=== PATIENT | male | born 1930 ===

== ENCOUNTER 2018-05-26 20:23 | Observation (INO) | payer MEDICARE, MEDICAID ==
--- NOTE | 2018-05-26 22:19 | ED PDOC ---
Lower Extremity Pain/Injury Time Seen by Provider: 05/26/18 21:17 Chief Complaint (Nursing): Male Genitourinary Chief Complaint (Provider): LLE Swelling History Per: Patient History/Exam Limitations: no limitations Onset/Duration Of Symptoms: Days (x3) Current Symptoms Are (Timing): Still Present Additional Complaint(s): 88 year old male, with a past medical hx of CHF, pacemaker, HTN, diabetes, and dyslipidemia, presents to the ED complaining of bilateral lower extremity swelling and SOB for 3 days. Patient is also complaining of intermittent chest pain, right flank pain, shortness of breath, trouble urinating last night, and dyspnea on exertion. PMD: Mau Peraza Past Medical History Reviewed: Historical Data, Nursing Documentation, Vital Signs Vital Signs: Last Vital Signs Temp 98.2 F 05/26/18 21:09 Pulse 84 05/26/18 21:09 Resp 18 05/26/18 21:09 BP 143/89 05/26/18 21:09 Pulse Ox 100 05/26/18 21:09 - Medical History PMH: CHF, Diabetes, HTN, Hypercholesterolemia, Seizures Denies: Chronic Kidney Disease Other PMH: Dyslipidemia - Surgical History Surgical History: Pacemaker Other surgeries: Brain surgery for traumatic blood clot - Family History Family History: States: Unknown Family Hx - Social History Current smoker - smoking cessation education provided: No Alcohol: None Drugs: Denies - Immunization History Hx Tetanus Toxoid Vaccination: No Hx Influenza Vaccination: No Hx Pneumococcal Vaccination: No - Home Medications Home Medications: Ambulatory Orders Medication Instructions Recorded RX: Carvedilol [Coreg] 25 mg PO BID 30 Days tab 05/15/17 RX: Dutasteride [Avodart] 0.5 mg PO DAILY #30 capsule 05/15/17 RX: Famotidine [Pepcid] 40 mg PO DAILY 30 Days tab 05/15/17 RX: Fenofibrate [Tricor] 1 tab PO DAILY 30 Days tab 05/15/17 RX: Furosemide [Lasix] 20 mg PO DAILY 30 Days tab 05/15/17 RX: Losartan [Cozaar] 50 mg PO DAILY 30 Days tab 05/15/17 RX: MetFORMIN [glucoPHAGE] 1,000 mg PO BID 30 Days tab 05/15/17 RX: Phenytoin Sodium Extended 100 mg PO TID #90 capsule 05/15/17 RX: Phenytoin, Extended [Dilantin] 100 mg PO TID 30 Days #0 cer 05/15/17 RX: Rosuvastatin Calcium [Crestor] 5 mg PO HS 30 Days tab 05/15/17 RX: Simvastatin 20 mg PO HS 30 Days tablet 05/15/17 RX: Acetaminophen [Tylenol 325mg 650 mg PO Q6 PRN tab 05/21/17 tab] RX: Amoxicillin [Amoxil 500 mg Cap] 500 mg PO Q8H cap 05/21/17 RX: Apixaban [Eliquis] 5 mg PO BID tab 05/21/17 RX: Aspirin [Aspirin Chewable] 81 mg PO DAILY chew 05/21/17 RX: Benzocaine/Menthol [Cepacol 1 dinorah MT DAILY PRN dinorah 05/21/17 Sore Throat] RX: Digoxin 0.125 mg PO DAILY@1800 tab 05/21/17 RX: Insulin Human Regular [Novolin 0 unit SC ACHS unit 05/21/17 R] RX: Meclizine [Meclizine*] 25 mg PO TID tab 05/21/17 RX: Metoprolol [Lopressor] 5 mg IVP Q1H PRN amp 05/21/17 RX: cefTRIAXone [Rocephin] 500 mg IVPB Q24H vial 05/21/17 RX: diltiaZEM CD [Cardizem CD] 120 mg PO DAILY cap 05/21/17 - Allergies Allergies/Adverse Reactions: Allergies Allergy/AdvReac Type Severity Reaction Status Date / Time No Known Allergies Allergy Verified 05/26/18 21:09 Review of Systems ROS Statement: Except As Marked, All Systems Reviewed And Found Negative Cardiovascular: Positive for: Chest Pain Respiratory: Positive for: Shortness of Breath, SOB with Exertion Gastrointestinal: Positive for: Abdominal Pain (right flank pain) Genitourinary Male: Positive for: Dysuria Musculoskeletal: Positive for: Other (Lower extremity swelling ) Physical Exam - Reviewed Nursing Documentation Reviewed: Yes Vital Signs Reviewed: Yes - Physical Exam Appears: Positive for: Non-toxic, No Acute Distress Head Exam: Positive for: ATRAUMATIC, NORMOCEPHALIC Skin: Positive for: Normal Color, Warm, Dry Eye Exam: Positive for: Normal appearance Neck: Positive for: Normal, Painless ROM Cardiovascular/Chest: Positive for: Regular Rate, Rhythm. Negative for: Murmur Respiratory: Positive for: Other (Decreased air entry to lung bases bilaterally). Negative for: Wheezing Extremity: Positive for: Other (2+ edema in lower extremities bilaterally) Neurologic/Psych: Positive for: Alert, Oriented. Negative for: Motor/Sensory Deficits - Laboratory Results Result Diagrams: 05/26/18 21:35 05/26/18 21:35 - ECG O2 Sat by Pulse Oximetry: 100 (RA) Pulse Ox Interpretation: Normal - Radiology X-Ray: Interpreted by Me, Viewed By Me X-Ray Interpretation: Cardiomegaly, Other (pacemaker) Medical Decision Making Medical Decision Making: Initial Impression: 88 y/o male with SOB, CP, and lower extremity edema insetting of known CHF Initial Plan: --CT abd/pelvis --ECG --B-type natriuretic stat --CMP --Troponin --ED urine dipstick --PTT --CBC --Prothrombin --Chest X-ray 00:15 Labs reviewed, significant for elevated proBNP. CT abd/pelvis showed no acute findings. XRay chest showed cardiomegaly. Patient has a pacemaker. Patient will be placed under observation for CHF chest pain under Dr. Dave (hospitalist). Scribe Attestation: Documented by Flaco Issa acting as a scribe for Damion Hernandez MD. Documented by Maricruz Gayle acting as a scribe for Damion Hernandez MD. Provider Scribe Attestation: All medical record entries made by the Scribe were at my direction and personally dictated by me. I have reviewed the chart and agree that the record accurately reflects my personal performance of the history, physical exam, medical decision making, and the department course for this patient. I have also personally directed, reviewed, and agree with the discharge instructions and disposition. Disposition - Clinical Impression Clinical Impression: CHF (congestive heart failure), Chest pain Discussed With DrSteffen: Prudencio Dave - Disposition Disposition Time: 00:15 Condition: FAIR Forms: [facility] ([place]) - Pt Status Changed To: Hospital Disposition Of: Observation
[2018-05-26 22:38] LABS: BASO # 0.1 K/uL (0.0-0.2); BASO % 1.1 % (0.0-2.0); EOS # 0.3 K/uL (0.0-0.7); EOS % 5.3 % (0.0-4.0); HEMOGLOBIN 10.2 g/dL (12.0-18.0); LYMPH # 1.2 K/uL (1.0-4.3); LYMPH % 21.4 % (20.0-40.0); MEAN CORPUSCULAR HEMOGLOBIN 27.1 pg (27.0-31.0); MEAN CORPUSCULAR HGB CONC 33.1 g/dL (33.0-37.0); MEAN PLATELET VOLUME 11.2 fl (7.2-11.7); MONO # 0.7 K/uL (0.0-0.8); MONO % 12.9 % (0.0-10.0); NEUT # 3.4 K/uL (1.8-7.0); NEUT % 59.3 % (50.0-75.0); NRBC % 0.1 % (0.0-0.0); RBC 3.77 Mil/uL (4.40-5.90); RED CELL DISTRIBUTION WIDTH 15.8 % (11.5-14.5); WHITE BLOOD COUNT 5.8 K/uL (4.8-10.8)
[2018-05-26 22:45] LABS: INR 1.5; PROTHROMBIN TIME 17.3 Seconds (9.8-13.1)
[2018-05-26 22:48] LABS: PARTIAL THROMBOPLASTIN TIME 42.8 Seconds (25.6-37.1)
[2018-05-26 22:53] LABS: ALB/GLOB RATIO 1.2 (1.0-2.1); ALBUMIN 4.3 g/dL (3.5-5.0); CALCIUM 9.6 mg/dL (8.4-10.2)
[2018-05-26 22:57] LABS: TROPONIN I 0.026 ng/mL (0.00-0.120)
[2018-05-26 23:43] LABS: SQUAMOUS EPITHIAL < 1 /hpf (0-5); URINE BILIRUBIN NEGATIVE (NEGATIVE); URINE BLOOD NEGATIVE (NEGATIVE); URINE CLARITY CLEAR (Clear); URINE COLOR YELLOW (YELLOW); URINE GLUCOSE (UA) NEG (Normal); URINE LEUKOCYTE ESTERASE TRACE Leu/uL (Negative); URINE PROTEIN NEGATIVE (NEGATIVE); URINE UROBILINOGEN 0.2-1.0 mg/dL (0.2-1.0)
--- NOTE | 2018-05-27 03:21 | CP.PCM.HP ---
Addendum entered and electronically signed by Darío Houston MD 05/27/18 17:23: And Losartan 50 mg po QD Addendum entered and electronically signed by Darío Houston MD 05/27/18 17:18: Called patient's pharmacy and verified list of medication : He has not been on cardizem or digoxin as per pharmacy he is on Coreg 25 mg po BId, eliquist 5 mg po BID fenofibrate 145 mg po qd lasix 20 mg po QWD Avodart 0.5 mg po QD Flomax 0.4 mg po qd Dilantin 100 mg po tid metformin 1000 mg po BID Simvastatin 20 mg PO Qd Omeprazole 40 mg Po QD Meclizine 25 mg po TID PRN Addendum entered and electronically signed by Darío Houston MD 05/27/18 16:53: Patient seen and examined . All chart and clinical data reviewed. Care resumed . case discussed with resident . Agree with assessment and plna Continue current management Acute CHF exacerbation diastolic dysfuntion __ Echo showed EF 60-65 % Continue Lasix 40 mg IV , Cozaar,Digoxin, Coreg cardio eval with Dr. Nuno Trop x2 negative CXR and CT abdomen ands pelvis showed no acute pathology Start Lidoderm patch to right hemithorax , laterally PT eval Addendum entered and electronically signed by Mechelle Meadows MD 05/27/18 14:07: S: Patient was seen and examined this morning, NAD, reports no significant SOB or chest pain. States increased urinary frq, and right flank pain. O: VS reviewed PE: AAOx3, CTBL, pedal edema A/P: 88 y/o male with PMH of NIDDM2, Pacemaker, HTN, Afib admitted for evaluation and treatment of possible CHF - Troponin x2 negative - EKG: A.fib, Consider lateral ischemia - CXR negative for any acute findings - Abdo/Pelvis CT: negative (F/u official read) - Echo: EF 60-65% (Elevated Pro-BNP) - C/w Lasix 40mg IV daily - HTN/A.fib: C/w Eliquis, Coreg, Digoxin, Cardizem, Cozzar - Back/Flank pain: Pleuritis vs Musculoskeletal, C/w Lidoderm patch - BPH: C/w dutasteride Case discussed with Dr. Houston Original Note: <Ha Luna - Last Filed: 05/27/18 03:50> History of Present Illness - History of Present Illness History of Present Illness: 88 y/o male with extensive cardiac history, hard of hearing, presented to ER for evaluation of elevated BP, chest pain, and worsening pedal edema. Reports symptoms have been ongoing for the last three days, with symptoms being the worst today. Pt does not remember his home BP reading. His chest pain is located substernally without any radiation and has since resolved since being seen in ED. He denies any orthopnea or changes in exercise tolerance. He denies any left arm pain/jaw pain, N/V/diaphoresis. No other complaints. Reports being adherent with home meds but does not have which ones he was taking today. PMD: Dr Mau Elise. cardio: Zeinab Nuno PMHx: NIDDM2, Pacemaker, HTN, Afib Home Medications: as per med rec, several meds need to be confirmed from pharmacy Allergies: NKDA SocialHx: denies ETOH/tobacco/drug abuse FamHx: denies Present on Admission - Present on Admission Any Indicators Present on Admission: No History of DVT/PE: No History of Uncontrolled Diabetes: No Urinary Catheter: No Decubitus Ulcer Present: No Review of Systems - Review of Systems Review of Systems: 12 systems reviewed, found to be negative unless otherwise mentioned in HPI Past Patient History - Past Medical History & Family History Past Medical History?: Yes - Past Social History Alcohol: None Drugs: Denies - CARDIAC Hx Congestive Heart Failure: Yes Hx Hypercholesterolemia: Yes Hx Hypertension: Yes Hx Pacemaker: Yes - PULMONARY Hx Respiratory Disorders: No - NEUROLOGICAL Hx Seizures: Yes - RENAL Hx Chronic Kidney Disease: No - ENDOCRINE/METABOLIC Hx Diabetes Mellitus Type 1: Yes - MUSCULOSKELETAL/RHEUMATOLOGICAL Hx Falls: Yes - PSYCHIATRIC Hx Substance Use: No - SURGICAL HISTORY Hx Eye Surgery: Yes (Both) - ANESTHESIA Hx Anesthesia: Yes Hx Anesthesia Reactions: No Meds Allergies/Adverse Reactions: Allergies Allergy/AdvReac Type Severity Reaction Status Date / Time No Known Allergies Allergy Verified 05/26/18 21:09 Physical Exam - Constitutional Appears: Non-toxic, No Acute Distress - Head Exam Head Exam: ATRAUMATIC, NORMOCEPHALIC - Eye Exam Eye Exam: EOMI. absent: Scleral icterus Pupil Exam: PERRL - ENT Exam ENT Exam: Mucous Membranes Moist - Neck Exam Neck exam: Negative for: Lymphadenopathy - Respiratory Exam Respiratory Exam: Clear to Auscultation Bilateral, NORMAL BREATHING PATTERN. absent: Accessory Muscle Use, Rales, Rhonchi, Wheezes, Respiratory Distress - Cardiovascular Exam Cardiovascular Exam: REGULAR RHYTHM, RRR, +S1, +S2, Systolic Murmur (lusb). absent: JVD, Rubs - GI/Abdominal Exam GI & Abdominal Exam: Normal Bowel Sounds, Soft, Tenderness (RUQ tenderness ) - Extremities Exam Extremities exam: Positive for: normal capillary refill, pedal edema (2+ b/l pitting edema up to the knees ), pedal pulses present - Neurological Exam Neurological exam: Alert, Oriented x3 - Skin Skin Exam: Dry, Intact, Normal Color, Warm Results - Vital Signs Recent Vital Signs: Last Vital Signs Temp 98.3 F 05/27/18 01:10 Pulse 84 05/27/18 01:10 Resp 17 05/27/18 01:10 BP 148/101 H 05/27/18 01:10 Pulse Ox 100 05/27/18 01:17 - Labs Result Diagrams: 05/26/18 21:35 05/26/18 21:35 Labs: Laboratory Results - last 24 hr 05/26/18 05/26/18 05/26/18 21:35 21:35 22:25 WBC 5.8 RBC 3.77 L Hgb 10.2 L Hct 31.0 L MCV 82.0 MCH 27.1 MCHC 33.1 RDW 15.8 H Plt Count 150 MPV 11.2 Neut % (Auto) 59.3 Lymph % (Auto) 21.4 [place] % (Auto) 12.9 H Eos % (Auto) 5.3 H Baso % (Auto) 1.1 Neut # (Auto) 3.4 Lymph # (Auto) 1.2 [place] # (Auto) 0.7 Eos # (Auto) 0.3 Baso # (Auto) 0.1 PT 17.3 H INR 1.5 APTT 42.8 H Sodium 143 Potassium 4.4 Chloride 103 Carbon Dioxide 28 Anion Gap 16 BUN 20 Creatinine 1.4 Est GFR ( Amer) 58 Est GFR (Non-Af Amer) 48 Random Glucose 126 H Calcium 9.6 Total Bilirubin 0.6 AST 30 ALT 16 L Alkaline Phosphatase 33 L Troponin I 0.0260 NT-Pro-B Natriuret Pep 1780 H Total Protein 8.0 Albumin 4.3 Globulin 3.7 Albumin/Globulin Ratio 1.2 Urine Color Urine Clarity Urine pH Ur Specific [place] Urine Protein Urine Glucose (UA) Urine Ketones Urine Blood Urine Nitrate Urine Bilirubin Urine Urobilinogen Ur Leukocyte Esterase Urine RBC (Auto) Urine Microscopic WBC Ur Squamous Epith Cells 05/26/18 23:20 WBC RBC Hgb Hct MCV MCH MCHC RDW Plt Count MPV Neut % (Auto) Lymph % (Auto) [place] % (Auto) Eos % (Auto) Baso % (Auto) Neut # (Auto) Lymph # (Auto) [place] # (Auto) Eos # (Auto) Baso # (Auto) PT INR APTT Sodium Potassium Chloride Carbon Dioxide Anion Gap BUN Creatinine Est GFR ( Amer) Est GFR (Non-Af Amer) Random Glucose Calcium Total Bilirubin AST ALT Alkaline Phosphatase Troponin I NT-Pro-B Natriuret Pep Total Protein Albumin Globulin Albumin/Globulin Ratio Urine Color Yellow Urine Clarity Clear Urine pH 7.0 Ur Specific [place] 1.005 Urine Protein Negative Urine Glucose (UA) Neg Urine Ketones Negative Urine Blood Negative Urine Nitrate Negative Urine Bilirubin Negative Urine Urobilinogen 0.2-1.0 Ur Leukocyte Esterase Trace Urine RBC (Auto) 3 Urine Microscopic WBC 9 H Ur Squamous Epith Cells < 1 Assessment & Plan - Assessment and Plan (Free Text) Assessment: 88 y/o male with extensive cardiac history admitted for acute CHF. Plan: 1) Acute CHF ProBNP 1750 daily weights strict I/Os AM ECHO head of bed at 30 deg lasix 40 ivp daily con't all home medications, hold PO lasix trend Troponin repeat EKG in AM 2) Atrial fibrillation c/w home meds 3) NIDDM2 -resume PO metformin -insulin lispro coverage scale 4) Prophylaxis -Elqiuis 5mg QD 5) Diet -heart healthy 6) Code status -full code <Prudencio Dave P - Last Filed: 05/27/18 06:45> Results - Vital Signs Recent Vital Signs: Last Vital Signs Temp 98.7 F 05/27/18 05:00 Pulse 77 05/27/18 05:00 Resp 16 05/27/18 05:00 BP 127/88 05/27/18 05:00 Pulse Ox 100 10/10/18 05:00 - Labs Result Diagrams: 05/26/18 21:35 05/26/18 21:35 Labs: Laboratory Results - last 24 hr 05/26/18 05/26/18 05/26/18 21:35 21:35 22:25 WBC 5.8 RBC 3.77 L Hgb 10.2 L Hct 31.0 L MCV 82.0 MCH 27.1 MCHC 33.1 RDW 15.8 H Plt Count 150 MPV 11.2 Neut % (Auto) 59.3 Lymph % (Auto) 21.4 [place] % (Auto) 12.9 H Eos % (Auto) 5.3 H Baso % (Auto) 1.1 Neut # (Auto) 3.4 Lymph # (Auto) 1.2 [place] # (Auto) 0.7 Eos # (Auto) 0.3 Baso # (Auto) 0.1 PT 17.3 H INR 1.5 APTT 42.8 H Sodium 143 Potassium 4.4 Chloride 103 Carbon Dioxide 28 Anion Gap 16 BUN 20 Creatinine 1.4 Est GFR ( Amer) 58 Est GFR (Non-Af Amer) 48 POC Glucose (mg/dL) Random Glucose 126 H Calcium 9.6 Total Bilirubin 0.6 AST 30 ALT 16 L Alkaline Phosphatase 33 L Troponin I 0.0260 NT-Pro-B Natriuret Pep 1780 H Total Protein 8.0 Albumin 4.3 Globulin 3.7 Albumin/Globulin Ratio 1.2 Urine Color Urine Clarity Urine pH Ur Specific [place] Urine Protein Urine Glucose (UA) Urine Ketones Urine Blood Urine Nitrate Urine Bilirubin Urine Urobilinogen Ur Leukocyte Esterase Urine RBC (Auto) Urine Microscopic WBC Ur Squamous Epith Cells 05/26/18 05/27/18 05/27/18 23:20 04:11 04:20 WBC RBC Hgb Hct MCV MCH MCHC RDW Plt Count MPV Neut % (Auto) Lymph % (Auto) [place] % (Auto) Eos % (Auto) Baso % (Auto) Neut # (Auto) Lymph # (Auto) [place] # (Auto) Eos # (Auto) Baso # (Auto) PT INR APTT Sodium Potassium Chloride Carbon Dioxide Anion Gap BUN Creatinine Est GFR ( Amer) Est GFR (Non-Af Amer) POC Glucose (mg/dL) 87 Random Glucose Calcium Total Bilirubin AST ALT Alkaline Phosphatase Troponin I 0.0280 NT-Pro-B Natriuret Pep Total Protein Albumin Globulin Albumin/Globulin Ratio Urine Color Yellow Urine Clarity Clear Urine pH 7.0 Ur Specific [place] 1.005 Urine Protein Negative Urine Glucose (UA) Neg Urine Ketones Negative Urine Blood Negative Urine Nitrate Negative Urine Bilirubin Negative Urine Urobilinogen 0.2-1.0 Ur Leukocyte Esterase Trace Urine RBC (Auto) 3 Urine Microscopic WBC 9 H Ur Squamous Epith Cells < 1 Attending/Attestation - Attestation I have personally seen and examined this patient.: Yes I have fully participated in the care of the patient.: Yes I have reviewed all pertinent clinical information: Yes Notes (Text): 05/27/18 06:42 Assessment CHF exacerbation with leg edema suspected hepatic congestion HTN h/o afib on eliquis, rate control s/p pacemaker DM on metformin Plan IV diuresis Home meds hold on metformin, due to CHF, sliding scale coverage Echo if not recently done See orders for detail.
[2018-05-27] MEDS ORDERED: Glucagon Recombinant 1 mg Inj IM PRN (03:56)
[2018-05-27] MEDS ORDERED: Dextrose 50% SYRINGE Inj (50 ml) IV PRN (03:56)
[2018-05-27] MEDS ORDERED: Pneumococcal 23-Valent Vaccine IM ONE (06:00)
--- NOTE | 2018-05-27 06:44 | CARD ---
APPROVED REPORT Date of service: 05/27/2018 EKG Measurement Heart [id number] <Conclusion> Atrial fibrillation Left anterior fascicular block ST & T wave abnormality, consider lateral ischemia Abnormal ECG
--- NOTE | 2018-05-27 06:52 | CARD ---
APPROVED REPORT Date of service: 05/26/2018 EKG Measurement Heart [id number] <Conclusion> Atrial flutter with variable AV block ST & T wave abnormality, consider lateral ischemia Abnormal ECG
[2018-05-27 07:02] VITALS: BMI 24.3
[2018-05-27] MEDS ORDERED: Influenza Vaccine 60 MCG/0.5 ML SYR (3 yr & up) IM ONE (07:07)
[2018-05-27] MEDS: Insulin Lispro (humaLOG) 100 Units/ml Inj SC SCH ×4 (08:28→23:01)
[2018-05-27] MEDS ORDERED: diltiaZEM 120 mg/24 Hours CD Cap PO SCH (09:00)
[2018-05-27] MEDS ORDERED: Patient's Own Med (Famotidine [Pepcid] 40 MG) PO SCH (09:00)
[2018-05-27] MEDS ORDERED: Patient's Own Med (Dutasteride [Avodart] 0.5 MG) PO SCH (09:00)
--- NOTE | 2018-05-27 10:53 | RAD ---
Date of service: 05/26/2018 HISTORY: chest pain COMPARISON: No prior. FINDINGS: LUNGS: The lungs are well inflated and clear. PLEURA: No significant pleural effusion identified, no pneumothorax apparent. CARDIOVASCULAR: There is mild cardiomegaly. There is a left-sided permanent pacing device. OSSEOUS STRUCTURES: No significant abnormalities. VISUALIZED UPPER ABDOMEN: Normal. OTHER FINDINGS: None. IMPRESSION: No acute findings.
[2018-05-27] MEDS: Lidocaine 5% Patch TD SCH (11:02)
[2018-05-27] MEDS ORDERED: Perflutren Lipid Microsphere 1.5 ML SUS IV ONE (12:32)
--- NOTE | 2018-05-27 13:40 | CARD ---
APPROVED REPORT Date of service: 05/27/2018 EXAM: Two-dimensional and M-mode echocardiogram with Doppler, color Doppler with contrast. Other Information Quality : GoodRhythm : Pacemaker INDICATION Congestive Heart Failure Echo Enhancing Agent Indication: Rule out thrombus Agent/Amount Used: Definity Surgery/Intervention Pacemaker: 2D DIMENSIONS IVSd1.41 (0.7-1.1cm)LVDd3.94 (3.9-5.9cm) LVOT Diameter1.86 (1.8-2.4cm)PWd1.25 (0.7-1.1cm) IVSs1.55 (0.8-1.2cm)LVDs2.91 (2.5-4.0cm) FS (%) 26.0 %PWs1.46 (0.8-1.2cm) M-Mode DIMENSIONS Left Atrium (MM)5.15 (2.5-4.0cm)IVSd1.35 (0.7-1.1cm) Aortic Root3.53 (2.2-3.7cm)LVDd2.74 (4.0-5.6cm) Aortic Cusp Exc.1.76 (1.5-2.0cm)PWd1.15 (0.7-1.1cm) IVSs1.18 cmFS (%) 45 % LVDs1.50 (2.0-3.8cm)PWs1.74 cm Mitral Valve E/A ratio0.0 TDI E/Lateral E'0.0E/Medial E'0.0 Pulmonary Valve PV Peak Mrpsbpmz826.9cm/s Tricuspid Valve TR Peak [id number]/sRAP [id number] Peak Gr.36mmHg [id number] LEFT VENTRICLE The left ventricle is normal size. There is mild left ventricular wall concentric hypertrophy. The left ventricular systolic function is normal. The estimated ejection fraction is 60-65% No regional wall motion abnormalities noted.. The left ventricular diastolic function cannot be assessed due to underlying atrial flutter. No left ventricle thrombus noted on this study. There is no ventricular septal defect visualized. There is no left ventricular aneurysm. There is no mass noted in the left ventricle. RIGHT VENTRICLE The right ventricle is normal size. There is normal right ventricular wall thickness. The right ventricular systolic function is normal. There is a pacemaker lead in RV. ATRIA The left atrium is moderately dilated. The right atrium size is normal. The interatrial septum is intact with no evidence for an atrial septal defect. AORTIC VALVE The aortic valve is normal in structure. No aortic regurgitation is present. There is no aortic valvular stenosis. There is no aortic valvular vegetation. MITRAL VALVE The mitral valve is normal in structure. There is no evidence of mitral valve prolapse. There is no mitral valve stenosis. There is no mitral valve regurgitation noted. TRICUSPID VALVE The tricuspid valve is normal in structure. There is mild tricuspid valve regurgitation noted. RVSP is calculated at 40 mm Hg. There is no tricuspid valve prolapse or vegetation. There is no tricuspid valve stenosis. PULMONIC VALVE The pulmonary valve is normal in structure. There is no pulmonic valvular regurgitation. There is no pulmonic valvular stenosis. GREAT VESSELS The aortic root is normal in size. The ascending aorta is normal in size. The pulmonary artery is normal. The IVC is normal in size and collapses >50% with inspiration. PERICARDIAL EFFUSION There is no pericardial effusion. There is no pleural effusion. <Conclusion> Technically difficult study. Definity contrast was used for endocardial border definition. The estimated ejection fraction is 60-65% There is mild left ventricular wall concentric hypertrophy. The left ventricular diastolic function cannot be assessed due to underlying atrial flutter. The left atrium is moderately dilated. There is a pacemaker lead in RV. There is mild tricuspid valve regurgitation noted. RVSP is calculated at 40 mm Hg.
--- NOTE | 2018-05-27 15:08 | CT ---
Date of service: 05/26/2018 PROCEDURE: CT Abdomen and Pelvis without intravenous contrast HISTORY: renal colic COMPARISON: None. TECHNIQUE: Without contrast. Contrast dose: None Radiation dose: Total exam DLP = 540 mGy-cm. This CT exam was performed using one or more of the following dose reduction techniques: Automated exposure control, adjustment of the mA and/or kV according to patient size, and/or use of iterative reconstruction technique. FINDINGS: LOWER THORAX: Posterior minimal pleural thickening. Mild cardiomegaly coronary artery stents noted. Apparent intracardiac dual lead pacemaker device in place. LIVER: Limited evaluation without IV contrast. No gross lesion or ductal dilatation. GALLBLADDER AND BILE DUCTS: Gallstones present. No dilated ducts appreciated PANCREAS: Unremarkable. No gross lesion or ductal dilatation. SPLEEN: Unremarkable. ADRENALS: Unremarkable. No mass. KIDNEYS AND URETERS: Bilateral renal/perirenal hypodensities-nonspecific inflammatory changes compatible with this. Possible subtle hypodense masses and/or cyst questioned for example on the right series 3, image 46. Limited examination without IV contrast. No hydronephrosis or hydroureter. No obstructing urolithiasis noted. VASCULATURE: Extensive Atherosclerotic vascular calcifications present. No aortic aneurysm. Each common iliac artery lumen appears top-normal approximately 1.3 to 1.4 cm BOWEL: Moderate stool retention.. No obstruction. No gross mural thickening. APPENDIX: A portion of the appendix. Believe identified and unremarkable in appearance PERITONEUM: Unremarkable. No free fluid. No free air. LYMPH NODES: Unremarkable. No enlarged lymph nodes. BLADDER: Moderately distended but otherwise unremarkable. REPRODUCTIVE: Prostate probably top-normal in size. BONES: Prominent focal central superior L2 endplate Schmorl's node indentation with vacuum disc phenomena. No retropulsed ossific fragments. Lumbar diffuse spondylosis. OTHER FINDINGS: Bilateral fat only containing groin hernias left side greater than right IMPRESSION: No obstructing urolithiasis. No hydronephrosis or hydroureter. Nonspecific minimal bilateral perirenal fat inflammatory changes-chronicity unknown.. Possible subtle hypodense renal masses-evaluation limited without IV contrast enhancement. Consider renal ultrasound for further evaluation. Gallstones. No dilated ducts. Moderate stool retention. No bowel obstruction. Diffuse lumbar spondylosis and prominent Schmorl's node indentation as above. Probable concomitant diffuse disc bulging. Concordant results (preliminary interpretation) provided by [email or web address].
[2018-05-27 17:23] VITALS: PULSE 75
[2018-05-27] MEDS ORDERED: Digoxin 125 mcg (0.125 mg) Tab PO SCH (18:00)
[2018-05-28 00:34] VITALS: RESP 18
[2018-05-28 05:41] LABS: HEMOGLOBIN 10.5 g/dL (12.0-18.0); RBC 3.88 Mil/uL (4.40-5.90); RED CELL DISTRIBUTION WIDTH 15.3 % (11.5-14.5); WHITE BLOOD COUNT 7.7 K/uL (4.8-10.8)
[2018-05-28 05:51] LABS: CALCIUM 9.8 mg/dL (8.4-10.2)
[2018-05-28 08:00] VITALS: O2SAT 98
[2018-05-28] MEDS ORDERED: Magnesium Sulfate 2 gm/50 ml 2 GM/50 ML BAG IVPB ONE (08:30)
[2018-05-28] MEDS: Insulin Lispro (humaLOG) 100 Units/ml Inj SC SCH (08:44)
[2018-05-28] MEDS: Lidocaine 5% Patch TD SCH (08:46)
--- NOTE | 2018-05-28 11:16 | CP.PCM.DIS ---
<MeadowsM[place]helle - Last Filed: 05/28/18 11:59> Provider - Provider Date of Admission: 05/27/18 03:18 Attending physician: Prudencio Dave MD Primary care physician: Dr Mau Elise Consults: Cardio: Zeinab Nuno/ Dr. Alvares Time Spent in preparation of Discharge (in minutes): 40 Diagnosis - Discharge Diagnosis (1) CHF (congestive heart failure) Status: Chronic Comment: - Echo showed EF 60-65 %. - S/p Lasix IV. - C/w Home medications: lasix 20 mg po QWD. - Follow up with Dr. Nuno (2) A-fib Status: Chronic Comment: - C/w eliquist 5 mg po BID. - C/w Coreg. - Follow up with Cardio as outpatient (3) Hypertension Status: Chronic Comment: - C/w Losartan 50 mg po QD, Coreg 25 mg po BId (4) Musculoskeletal back pain Status: Acute Comment: - C/w Lidoderm patch or OTC tylenol (5) Non-insulin dependent type 2 diabetes mellitus Status: Chronic Comment: - C/w metformin 1000 mg po BID (6) Urinary retention Status: Chronic Comment: - C/w Flomax 0.4 mg po qd, Avodart 0.5 mg po QD (7) Hypercholesteremia Status: Chronic Comment: - C/w fenofibrate 145 mg po qd, Simvastatin 20 mg PO Qd (8) Seizure Status: Acute Comment: - C/w Dilantin 100 mg po tid (9) Gastritis Status: Acute Comment: - C/w Omeprazole 40 mg Po QD Hospital Course - Lab Results Lab Results: Micro Results 05/27/18 06:34 Naris MRSA Culture (Admit) - Final MRSA NOT DETECTED Most Recent Lab Values WBC 7.7 K/uL (4.8-10.8) 05/28/18 04:55 RBC 3.88 Mil/uL (4.40-5.90) L 05/28/18 04:55 Hgb 10.5 g/dL (12.0-18.0) L 05/28/18 04:55 Hct 31.8 % (35.0-51.0) L 05/28/18 04:55 MCV 82.0 fl (80.0-94.0) 05/28/18 04:55 MCH 27.0 pg (27.0-31.0) 05/28/18 04:55 MCHC 33.0 g/dL (33.0-37.0) 05/28/18 04:55 RDW 15.3 % (11.5-14.5) H 05/28/18 04:55 Plt Count 155 K/uL (130-400) 05/28/18 04:55 MPV 11.2 fl (7.2-11.7) 05/26/18 21:35 Neut % (Auto) 59.3 % (50.0-75.0) 05/26/18 21:35 Lymph % (Auto) 21.4 % (20.0-40.0) 05/26/18 21:35 [place] % (Auto) 12.9 % (0.0-10.0) H 05/26/18 21:35 Eos % (Auto) 5.3 % (0.0-4.0) H 05/26/18 21:35 Baso % (Auto) 1.1 % (0.0-2.0) 05/26/18 21:35 Neut # (Auto) 3.4 K/uL (1.8-7.0) 05/26/18 21:35 Lymph # (Auto) 1.2 K/uL (1.0-4.3) 05/26/18 21:35 [place] # (Auto) 0.7 K/uL (0.0-0.8) 05/26/18 21:35 Eos # (Auto) 0.3 K/uL (0.0-0.7) 05/26/18 21:35 Baso # (Auto) 0.1 K/uL (0.0-0.2) 05/26/18 21:35 PT 17.3 Seconds (9.8-13.1) H 05/26/18 22:25 INR 1.5 05/26/18 22:25 APTT 42.8 Seconds (25.6-37.1) H 05/26/18 22:25 Sodium 142 mmol/l (132-148) 05/28/18 04:55 Potassium 3.6 MMOL/L (3.6-5.0) 05/28/18 04:55 Chloride 104 mmol/L (98-107) 05/28/18 04:55 Carbon Dioxide 26 mmol/L (22-30) 05/28/18 04:55 Anion Gap 16 (10-20) 05/28/18 04:55 BUN 20 mg/dl (9-20) 05/28/18 04:55 Creatinine 1.4 mg/dl (0.8-1.5) 05/28/18 04:55 Est GFR ( Amer) 58 05/28/18 04:55 Est GFR (Non-Af Amer) 48 05/28/18 04:55 POC Glucose (mg/dL) 96 mg/dL (65-110) 05/28/18 05:35 Random Glucose 103 mg/dL (75-110) 05/28/18 04:55 Calcium 9.8 mg/dL (8.4-10.2) 05/28/18 04:55 Phosphorus 4.5 mg/dl (2.5-4.5) 05/28/18 04:55 Magnesium 1.4 MG/DL (1.6-2.3) L 05/28/18 04:55 Total Bilirubin 0.6 mg/dl (0.2-1.3) 05/26/18 21:35 AST 30 U/L (17-59) 05/26/18 21:35 ALT 16 U/L (21-72) L 05/26/18 21:35 Alkaline Phosphatase 33 U/L (38-126) L 05/26/18 21:35 Troponin I 0.0280 ng/mL (0.00-0.120) 05/27/18 14:31 NT-Pro-B Natriuret Pep 1780 pg/ml (0-900) H 05/26/18 21:35 Total Protein 8.0 G/DL (6.3-8.2) 05/26/18 21:35 Albumin 4.3 g/dL (3.5-5.0) 05/26/18 21:35 Globulin 3.7 gm/dL (2.2-3.9) 05/26/18 21:35 Albumin/Globulin Ratio 1.2 (1.0-2.1) 05/26/18 21:35 Urine Color Yellow (YELLOW) 05/26/18 23:20 Urine Clarity Clear (Clear) 05/26/18 23:20 Urine pH 7.0 (5.0-8.0) 05/26/18 23:20 Ur Specific [place] 1.005 (1.003-1.030) 05/26/18 23:20 Urine Protein Negative mg/dL (NEGATIVE) 05/26/18 23:20 Urine Glucose (UA) Neg mg/dL (Normal) 05/26/18 23:20 Urine Ketones Negative mg/dL (NEGATIVE) 05/26/18 23:20 Urine Blood Negative (NEGATIVE) 05/26/18 23:20 Urine Nitrate Negative (NEGATIVE) 05/26/18 23:20 Urine Bilirubin Negative (NEGATIVE) 05/26/18 23:20 Urine Urobilinogen 0.2-1.0 mg/dL (0.2-1.0) 05/26/18 23:20 Ur Leukocyte Esterase Trace Antoni/uL (Negative) 05/26/18 23:20 Urine RBC (Auto) 3 /hpf (0-3) 05/26/18 23:20 Urine Microscopic WBC 9 /hpf (0-5) H 05/26/18 23:20 Ur Squamous Epith Cells < 1 /hpf (0-5) 05/26/18 23:20 Digoxin < 0.4 ng/mL (0.8-2.0) L 05/27/18 08:15 - Hospital Course Hospital Course: 88 y/o male with PMH of NIDDM2, S/p Pacemaker, HTN, HLD, Afib, Urinary retention, admitted for evaluation and treatment of possible acute exacerbation of Chronic CHF and left flank pain. After admission, Troponin x2 negative, EKG: A.fib, Consider lateral ischemia, CXR negative for any acute findings, Abdo/Pelvis CT: negative for any acute changes, and Echo: EF 60-65%. Patient is S/p IV lasix, improved breathing and pedal edema. Cardiology, Dr. Alvares, recommendations appreciated, cleared for the discharge, patient will follow up as outpatien to the cardiology. Patient was started on lidoderm patch for left flank pain which improved. Patient was discharged home with instructions to c/w home medications, f/u with PMD and cardiology. PMD: Dr Mau Elise Cardio: Dr. Zeinab Nuno Home medications: Coreg 25 mg po BId Losartan 50 mg po QD eliquist 5 mg po BID fenofibrate 145 mg po qd lasix 20 mg po QWD Avodart 0.5 mg po QD Flomax 0.4 mg po qd Dilantin 100 mg po tid metformin 1000 mg po BID Simvastatin 20 mg PO Qd Omeprazole 40 mg Po QD Meclizine 25 mg po TID PRN Discharge Exam - Head Exam Head Exam: ATRAUMATIC, NORMOCEPHALIC - Eye Exam Eye Exam: Normal appearance - ENT Exam ENT Exam: Mucous Membranes Moist, Normal Oropharynx - Neck Exam Neck exam: Normal Inspection - Respiratory Exam Respiratory Exam: Clear to PA & Lateral, NORMAL BREATHING PATTERN. absent: Accessory Muscle Use, Chest Wall Tenderness, Decreased Breath Sounds, Wheezes, Respiratory Distress - Cardiovascular Exam Cardiovascular Exam: Irregular Rhythm, +S1, +S2 - GI/Abdominal Exam GI & Abdominal Exam: Normal Bowel Sounds, Soft. absent: Distended, Tenderness - Extremities Exam Extremities exam: normal inspection - Back Exam Back exam: absent: CVA tenderness (L), CVA tenderness (R) - Neurological Exam Neurological exam: Alert, CN II-XII Intact, Oriented x3 - Psychiatric Exam Psychiatric exam: Normal Affect - Skin Skin Exam: Normal Color Discharge Plan - Discharge Medications Prescriptions: Furosemide [Lasix] 20 mg PO DAILY 30 Days tab - Follow Up Plan Condition: FAIR Disposition: HOME/ ROUTINE Instructions: Heart Failure, Adult (DC), Diabetes and Diet Additional Instructions: Follow up with PMD and cardiology with in 1 week after discharge C/w Home medications, including Lasix 20mg daily piero con el doctor melisa weston 06/10/18 a las 3:15pm Referrals: Mau Elise MD [Family Provider] - Chris Nuno MD [Staff Provider] - <Sherri Wright - Last Filed: 05/28/18 12:31> Provider - Provider Date of Admission: 05/27/18 03:18 Attending physician: Prudencio Dave MD Hospital Course - Lab Results Lab Results: Micro Results 05/27/18 06:34 Naris MRSA Culture (Admit) - Final MRSA NOT DETECTED Most Recent Lab Values WBC 7.7 K/uL (4.8-10.8) 05/28/18 04:55 RBC 3.88 Mil/uL (4.40-5.90) L 05/28/18 04:55 Hgb 10.5 g/dL (12.0-18.0) L 05/28/18 04:55 Hct 31.8 % (35.0-51.0) L 05/28/18 04:55 MCV 82.0 fl (80.0-94.0) 05/28/18 04:55 MCH 27.0 pg (27.0-31.0) 05/28/18 04:55 MCHC 33.0 g/dL (33.0-37.0) 05/28/18 04:55 RDW 15.3 % (11.5-14.5) H 05/28/18 04:55 Plt Count 155 K/uL (130-400) 05/28/18 04:55 MPV 11.2 fl (7.2-11.7) 05/26/18 21:35 Neut % (Auto) 59.3 % (50.0-75.0) 05/26/18 21:35 Lymph % (Auto) 21.4 % (20.0-40.0) 05/26/18 21:35 [place] % (Auto) 12.9 % (0.0-10.0) H 05/26/18 21:35 Eos % (Auto) 5.3 % (0.0-4.0) H 05/26/18 21:35 Baso % (Auto) 1.1 % (0.0-2.0) 05/26/18 21:35 Neut # (Auto) 3.4 K/uL (1.8-7.0) 05/26/18 21:35 Lymph # (Auto) 1.2 K/uL (1.0-4.3) 05/26/18 21:35 [place] # (Auto) 0.7 K/uL (0.0-0.8) 05/26/18 21:35 Eos # (Auto) 0.3 K/uL (0.0-0.7) 05/26/18 21:35 Baso # (Auto) 0.1 K/uL (0.0-0.2) 05/26/18 21:35 PT 17.3 Seconds (9.8-13.1) H 05/26/18 22:25 INR 1.5 05/26/18 22:25 APTT 42.8 Seconds (25.6-37.1) H 05/26/18 22:25 Sodium 142 mmol/l (132-148) 05/28/18 04:55 Potassium 3.6 MMOL/L (3.6-5.0) 05/28/18 04:55 Chloride 104 mmol/L (98-107) 05/28/18 04:55 Carbon Dioxide 26 mmol/L (22-30) 05/28/18 04:55 Anion Gap 16 (10-20) 05/28/18 04:55 BUN 20 mg/dl (9-20) 05/28/18 04:55 Creatinine 1.4 mg/dl (0.8-1.5) 05/28/18 04:55 Est GFR ( Amer) 58 05/28/18 04:55 Est GFR (Non-Af Amer) 48 05/28/18 04:55 POC Glucose (mg/dL) 162 mg/dL (65-110) H 05/28/18 11:18 Random Glucose 103 mg/dL (75-110) 05/28/18 04:55 Hemoglobin A1c 5.7 % (4.2-6.5) 05/27/18 17:17 Calcium 9.8 mg/dL (8.4-10.2) 05/28/18 04:55 Phosphorus 4.5 mg/dl (2.5-4.5) 05/28/18 04:55 Magnesium 1.4 MG/DL (1.6-2.3) L 05/28/18 04:55 Total Bilirubin 0.6 mg/dl (0.2-1.3) 05/26/18 21:35 AST 30 U/L (17-59) 05/26/18 21:35 ALT 16 U/L (21-72) L 05/26/18 21:35 Alkaline Phosphatase 33 U/L (38-126) L 05/26/18 21:35 Troponin I 0.0280 ng/mL (0.00-0.120) 05/27/18 14:31 NT-Pro-B Natriuret Pep 1780 pg/ml (0-900) H 05/26/18 21:35 Total Protein 8.0 G/DL (6.3-8.2) 05/26/18 21:35 Albumin 4.3 g/dL (3.5-5.0) 05/26/18 21:35 Globulin 3.7 gm/dL (2.2-3.9) 05/26/18 21:35 Albumin/Globulin Ratio 1.2 (1.0-2.1) 05/26/18 21:35 Urine Color Yellow (YELLOW) 05/26/18 23:20 Urine Clarity Clear (Clear) 05/26/18 23:20 Urine pH 7.0 (5.0-8.0) 05/26/18 23:20 Ur Specific [place] 1.005 (1.003-1.030) 05/26/18 23:20 Urine Protein Negative mg/dL (NEGATIVE) 05/26/18 23:20 Urine Glucose (UA) Neg mg/dL (Normal) 05/26/18 23:20 Urine Ketones Negative mg/dL (NEGATIVE) 05/26/18 23:20 Urine Blood Negative (NEGATIVE) 05/26/18 23:20 Urine Nitrate Negative (NEGATIVE) 05/26/18 23:20 Urine Bilirubin Negative (NEGATIVE) 05/26/18 23:20 Urine Urobilinogen 0.2-1.0 mg/dL (0.2-1.0) 05/26/18 23:20 Ur Leukocyte Esterase Trace Antoni/uL (Negative) 05/26/18 23:20 Urine RBC (Auto) 3 /hpf (0-3) 05/26/18 23:20 Urine Microscopic WBC 9 /hpf (0-5) H 05/26/18 23:20 Ur Squamous Epith Cells < 1 /hpf (0-5) 05/26/18 23:20 Digoxin < 0.4 ng/mL (0.8-2.0) L 05/27/18 08:15 Attending/Attestation - Attestation I have personally seen and examined this patient.: Yes I have fully participated in the care of the patient.: Yes I have reviewed all pertinent clinical information, including history, physical exam and plan: Yes Notes (Text): Dx: 1. Acute CHF exacerbation, diastolic dysfunction with EF60-65% - discussed case with Dr Johnson - pt will be seen in the office within 1 wk. - rec to cont Home meds
[2018-05-28 12:14] VITALS: BP 106/63; PULSE 80; TEMP 98
== END 2018-05-28 14:10 | disposition home health service (06) ==
LOC: H.ER 20:23 → H.ERHOLD 05-27 03:18 → H.ICU/CCU 05-27 04:19 → H.TEL 05-27 21:28
PROVIDERS: ADMIT Internal Medicine; ATTEND Internal Medicine
DX: I11.0 Hypertensive heart disease with heart failure (principal); I50.33 Acute on chronic diastolic (congestive) heart failure; E78.00 Pure hypercholesterolemia, unspecified; E78.5 Hyperlipidemia, unspecified; Z95.0 Presence of cardiac pacemaker; H91.90 Unspecified hearing loss, unspecified ear; I48.2 Chronic atrial fibrillation; Z79.01 Long term (current) use of anticoagulants; M54.9 Dorsalgia, unspecified; E11.9 Type 2 diabetes mellitus without complications; N40.1 Benign prostatic hyperplasia with lower urinary tract symptoms; R33.8 Other retention of urine; K29.70 Gastritis, unspecified, without bleeding; R56.9 Unspecified convulsions; Z23 Encounter for immunization
CPT/HCPCS: 36415; 71045; 74176; 80048; 80053; 80162; 81003; 82948; 83036; 83735; 83880; 84100; 84484; 85025; 85027; 85610; 85730; 87081; 90674; 93005; 93306; 97162; 99285; G0008; G0378; G8978; G8979; J1940

== ENCOUNTER 2018-12-31 18:09 | Inpatient (IN) | payer MEDICARE, MEDICAID ==
[2018-12-31 18:09] VITALS: PULSE 75; BMI 24.3
[2018-12-31 20:01] LABS: BASO # 0.1 K/uL (0.0-0.2); EOS # 0.1 K/uL (0.0-0.7); EOS % 2.1 % (0.0-4.0); HEMOGLOBIN 8.2 g/dL (12.0-18.0); LYMPH # 0.6 K/uL (1.0-4.3); LYMPH % 12.3 % (20.0-40.0); MEAN CELL VOLUME 75.3 fl (80.0-94.0); MEAN CORPUSCULAR HEMOGLOBIN 23.5 pg (27.0-31.0); MEAN CORPUSCULAR HGB CONC 31.3 g/dL (33.0-37.0); MEAN PLATELET VOLUME 10.9 fl (7.2-11.7); MONO # 0.9 K/uL (0.0-0.8); MONO % 17.4 % (0.0-10.0); NEUT # 3.4 K/uL (1.8-7.0); NEUT % 67.2 % (50.0-75.0); NRBC % 0.1 % (0.0-0.0); RBC 3.49 Mil/uL (4.40-5.90); RED CELL DISTRIBUTION WIDTH 16.9 % (11.5-14.5)
[2018-12-31 20:17] LABS: ALB/GLOB RATIO 1.5 (1.0-2.1); ALBUMIN 4.5 g/dL (3.5-5.0); CALCIUM 9.2 mg/dL (8.4-10.2)
--- NOTE | 2018-12-31 20:40 | ED PDOC ---
HPI: SOB/CHF/COPD Time Seen by Provider: 12/31/18 18:20 Chief Complaint (Nursing): Shortness Of Breath Chief Complaint (Provider): Shortness of Breath History Per: Patient, Medical Historian (Dona Horn #[id number]) History/Exam Limitations: no limitations Onset/Duration Of Symptoms: Days (several) Current Symptoms Are (Timing): Still Present Additional Complaint(s): 88 year old male with extensive pmhx including CHF, a-fib, HTN, diabetes, and seizures presents to the ED for evaluation of shortness of breath for the past several days associated with abdominal swelling and leg swelling. Otherwise, denies chest pain, fever, vomiting, and diarrhea. Past Medical History Reviewed: Historical Data, Nursing Documentation, Vital Signs Vital Signs: Last Vital Signs Temp 98.2 F 12/31/18 18:19 Pulse 61 12/31/18 18:19 Resp 24 12/31/18 18:55 BP 137/70 12/31/18 18: Pulse Ox 100 12/31/18 18:55 Primary Care Provider: Mau Elise - Medical History PMH: Atrial Fibrillation, Cardia Arrhythmia, CHF, Diabetes, HTN, Hypercholesterolemia, Peripheral Edema, Seizures Denies: Chronic Kidney Disease - Surgical History Surgical History: Pacemaker - Family History Family History: States: Unknown Family Hx - Social History Current smoker - smoking cessation education provided: No Alcohol: None Drugs: Denies - Immunization History Hx Tetanus Toxoid Vaccination: No Hx Influenza Vaccination: No Hx Pneumococcal Vaccination: No - Home Medications Home Medications: Ambulatory Orders Medication Instructions Recorded Meclizine [Meclizine*] 25 mg PO TID tab 05/21/17 Apixaban [Eliquis] 2.5 mg PO BID #60 tab 01/03/19 Aspirin [Aspirin Chewable] 81 mg PO DAILY #30 chew 01/03/19 Atorvastatin [Lipitor] 10 mg PO DAILY #30 tab 01/03/19 Carvedilol [Coreg] 25 mg PO BID #60 tab 01/03/19 Docusate [Colace] 100 mg PO BID #60 cap 01/03/19 Fenofibrate [Tricor] 48 mg PO DAILY #30 tab 01/03/19 Ferrous Sulfate [Feosol] 325 mg PO BID #60 tab 01/03/19 Furosemide [Lasix] 40 mg PO DAILY #30 tab 01/03/19 Losartan [Cozaar] 50 mg PO DAILY 30 Days tab 01/03/19 Omeprazole 40 mg PO DAILY #30 capsule. 01/03/19 Phenytoin Sodium Extended 100 mg PO TID #90 capsule 01/03/19 Tamsulosin HCl 0.4 mg PO DAILY #30 capsule 01/03/19 - Allergies Allergies/Adverse Reactions: Allergies Allergy/AdvReac Type Severity Reaction Status Date / Time No Known Allergies Allergy Verified 12/31/18 18:17 Curb-65 Severity Score - CURB-65 Severity Score Confusion: No Bun >19mg/dl (>7mmol/L): No Respiratory Rate greater than/equal to 30: No Systolic BP <90 or Diastolic BP less than/equal 60mmHg: No Age >64: No Curb-65 Score: 0 Percentage 30-day mortality: 0.6% Wells Criteria for PE - Wells Criteria for Pulmonary Embolism Clinical Signs and Symptoms of DVT: No P.E is #1 Diagnosis, or Equally Likely: No Heart Rate >100: No Previous, objectively diagnosed PE or DVT: No Hemoptysis: No Malignancy w/treatment within 6 months, or palliative: No Total Score: 0 Review of Systems ROS Statement: Except As Marked, All Systems Reviewed And Found Negative Constitutional: Negative for: Fever Cardiovascular: Negative for: Chest Pain Respiratory: Positive for: Shortness of Breath Gastrointestinal: Positive for: Other (abdominal swelling). Negative for: Vomiting, Diarrhea Musculoskeletal: Positive for: Other (bilateral leg swelling) Physical Exam - Reviewed Nursing Documentation Reviewed: Yes Vital Signs Reviewed: Yes - Physical Exam Appears: Positive for: No Acute Distress Head Exam: Positive for: ATRAUMATIC, NORMOCEPHALIC Skin: Positive for: Normal Color, Warm Eye Exam: Positive for: Normal appearance, EOMI, PERRL ENT: Positive for: Normal ENT Inspection Neck: Positive for: Normal, Painless ROM, Supple Cardiovascular/Chest: Positive for: Regular Rate, Rhythm Respiratory: Positive for: Normal Breath Sounds. Negative for: Respiratory D istress Gastrointestinal/Abdominal: Positive for: Soft, Distended. Negative for: Tenderness Extremity: Positive for: Pedal Edema, Capillary Refill (less than 2 s), Swelling (to bilateral legs). Negative for: Calf Tenderness Neurological/Psych: Positive for: Awake, Alert, Oriented (x3) - Laboratory Results Result Diagrams: 01/03/19 05:21 01/03/19 05:21 Lab Results: Total Bilirubin 0.6 mg/dl (0.2-1.3) 12/31/18 19:50 AST 23 U/L (17-59) 12/31/18 19:50 ALT 22 U/L (21-72) 12/31/18 19:50 Alkaline Phosphatase 79 U/L (38-126) 12/31/18 19:50 Total Protein 7.6 G/DL (6.3-8.2) 12/31/18 19:50 Albumin 4.5 g/dL (3.5-5.0) 12/31/18 19:50 Globulin 3.1 gm/dL (2.2-3.9) 12/31/18 19:50 Albumin/Globulin Ratio 1.5 (1.0-2.1) 12/31/18 19:50 - ECG ECG: Positive for: Interpreted By Me, Viewed By Me ECG Rhythm: Positive for: Sinus Rhythm (63bpm) O2 Sat by Pulse Oximetry: 100 (RA) Pulse Ox Interpretation: Normal Medical Decision Making Medical Decision Making: Time: 1936 Impression: shortness of breath, lower extremity edema, r/o CHF exacerbation, r/o pneumonia Plan: --BNP --CMP --CBC with differential --CXR --Lasix 10mg IVP 2034 Dr. Pritchard hospitalist aware of case and will admit patient for CHF exacerbation and worsening renal insufficiency. CXR consistent with CHF pro bnp elevated to 2200 BUN CR is also elevated -- Scribe Attestation: Documented by Hellen Rojas, acting as a scribe for Marlon Man MD. Provider Scribe Attestation: All medical record entries made by the Scribe were at my direction and personally dictated by me. I have reviewed the chart and agree that the record accurately reflects my personal performance of the history, physical exam, medical decision making, and the department course for this patient. I have also personally directed, reviewed, and agree with the discharge instructions and disposition. Disposition - Clinical Impression Clinical Impression: CHF (congestive heart failure) - Patient ED Disposition Is Patient to be Admitted: Yes Counseled Patient/Family Regarding: Studies Performed, Diagnosis - Disposition Disposition Time: 20:35 Condition: STABLE - Pt Status Changed To: Hospital Disposition Of: Observation (telemetry)
--- NOTE | 2018-12-31 21:54 | CP.PCM.HP ---
<Desi Cronin - Last Filed: 12/31/18 23:14> History of Present Illness - History of Present Illness History of Present Illness: CC: dyspnea HPU: 88 YO Male with PMHx of NIDDM2, Pacemaker, HTN, Afib, seizures presents to the ED for worsening dyspnea and lower ext edema. Patient states that for the past few weeks he has had gradual worsening dyspnea. It has been "really bad" in the last two days so much that he is unable to put on his shoes without getting short of breath. Its started a few days after his d/c from [facility] last month, he felt better for a few days but continues to have dyspnea. In additional to the dyspnea, patient had also noticed distended abdomen, and edema in the lower extremities. He has been taking all of his home meds, but had not noticed any changes. Dyspnea with activity. Denies chest pain, palpitations. [facility] [id number] PMD: Dr Mau Elise. cardio: Zeinab Nuno PMHx: NIDDM2, Pacemaker, HTN, Afib, seizures Home Medications: confirmed by pharmacy last admission Allergies: NKDA FHx: HTN SocialHx: denies ETOH/tobacco/drug abuse FamHx: denies Present on Admission - Present on Admission Any Indicators Present on Admission: No Review of Systems - Constitutional Constitutional: absent: Chills, Fever - Cardiovascular Cardiovascular: Dyspnea. absent: Chest Pain, Palpitations - Respiratory Respiratory: Dyspnea. absent: Cough - Gastrointestinal Gastrointestinal: Abdominal Pain, Constipation - Genitourinary Genitourinary: absent: Dysuria Past Patient History - Past Medical History & Family History Past Medical History?: Yes - Past Social History Smoking Status: Never Smoked Alcohol: None Drugs: Denies Home Situation {Lives}: With Family - CARDIAC Hx Atrial Fibrillation: Yes Hx Cardia Arrhythmia: Yes Hx Congestive Heart Failure: Yes Hx Hypercholesterolemia: Yes Hx Hypertension: Yes Hx Pacemaker: Yes Hx Peripheral Edema: Yes - PULMONARY Hx Respiratory Disorders: No - NEUROLOGICAL Hx Seizures: Yes - HEENT Hx Blind: Yes Hx Cataracts: Yes Hx Deafness: Yes Hx Glaucoma: Yes - RENAL Hx Chronic Kidney Disease: No - ENDOCRINE/METABOLIC Hx Diabetes Mellitus Type 1: Yes - MUSCULOSKELETAL/RHEUMATOLOGICAL Hx Falls: Yes - GASTROINTESTINAL Hx Gastroesophageal Reflux: Yes - PSYCHIATRIC Hx Substance Use: No - SURGICAL HISTORY Hx Eye Surgery: Yes (Both) Other/Comment: HX DVY with IVC filter. 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 absent: Wheezes - Cardiovascular Exam Cardiovascular Exam: REGULAR RHYTHM, +S1, +S2 Additional comments: distant heart sounds - GI/Abdominal Exam GI & Abdominal Exam: Distended (+fluid wave ), Normal Bowel Sounds, Soft, Tenderness (epigastric tenderness ). absent: Guarding, Mass - Extremities Exam Additional comments: dermatitis, edema b/l 2+ up to the knees Mild redness noted anteriorly, NT, mild warmth - Back Exam Back exam: NORMAL INSPECTION - Neurological Exam Neurological exam: Alert, CN II-XII Intact, Oriented x3 - Psychiatric Exam Psychiatric exam: Normal Affect, Normal Mood Results - Vital Signs Recent Vital Signs: Last Vital Signs Temp 98.2 F 12/31/18 18:19 Pulse 61 12/31/18 18:19 Resp 24 12/31/18 18:55 BP 125/74 12/31/18 21:50 Pulse Ox 100 12/31/18 20:55 - Labs Result Diagrams: 12/31/18 19:50 12/31/18 19:50 Labs: Laboratory Results - last 24 hr 12/31/18 12/31/18 12/31/18 19:50 19:50 20:20 WBC 5.0 RBC 3.49 L Hgb 8.2 L D Hct 26.3 L MCV 75.3 L D MCH 23.5 L MCHC 31.3 L RDW 16.9 H Plt Count 122 L D MPV 10.9 Neut % (Auto) 67.2 Lymph % (Auto) 12.3 L Otoe % (Auto) 17.4 H Eos % (Auto) 2.1 Baso % (Auto) 1.0 Neut # (Auto) 3.4 Lymph # (Auto) 0.6 L Otoe # (Auto) 0.9 H Eos # (Auto) 0.1 Baso # (Auto) 0.1 Sodium 135 Potassium 5.2 H Chloride 98 Carbon Dioxide 22 Anion Gap 20 BUN 56 H Creatinine 1.8 H Est GFR ( Amer) 43 Est GFR (Non-Af Amer) 36 Random Glucose 109 Calcium 9.2 Total Bilirubin 0.6 AST 23 ALT 22 Alkaline Phosphatase 79 NT-Pro-B Natriuret Pep 2200 H Total Protein 7.6 Albumin 4.5 Globulin 3.1 Albumin/Globulin Ratio 1.5 - EKG Data EKG Interpreted by: Myself EKG shows normal: Sinus rhythm (packed rythem with questionable heart block ) Rate: Normal Assessment & Plan - Assessment and Plan (Free Text) Assessment: Assessment/Plan: 88 YO Male with PMHx of NIDDM2, Pacemaker, HTN, Afib, seizures is admitted for CHF exacerbation. CHF exacerbation -likely acute on chronic -Echo 05/2018, EF 60-65 -CXR change in cardiac siloutte noted from last CXR -elevated pro-bnp -c/w lasix daily -echo ordered Ascites -acute, likely 2/2 to CHF -consider imaging fo the abdomen -consider paracentesis, fluid analysis -IV lasix UMA -likely 2/2 to CHF -acute on chronic -c/t to monitor Hyperkalemia -K 5.2, mild -s/p Lasix -follow up AM lab Anemia/thrombocytopenia -acute on chronic -microcytic anemia -iron studies and coags ordered -FOBT ordered Afib/pacemaker -chronic -c/w home meds HTN -controlled -c.w home meds NIDDM -c/w home meds -HbA1c 5.7 (05/2018) Seizures -chronic, controlled -c.w home meds DVT prolx -c/w eliquis <Chet Pritchard - Last Filed: 01/01/19 05:06> Results - Vital Signs Recent Vital Signs: Last Vital Signs Temp 98.2 F 12/31/18 18:19 Pulse 60 01/01/19 03:08 Resp 18 01/01/19 03:08 BP 124/86 01/01/19 00:16 Pulse Ox 100 12/31/18 23:50 - Labs Result Diagrams: 12/31/18 19:50 12/31/18 19:50 Labs: Laboratory Results - last 24 hr 12/31/18 12/31/18 12/31/18 19:50 19:50 20:20 WBC 5.0 RBC 3.49 L Hgb 8.2 L D Hct 26.3 L MCV 75.3 L D MCH 23.5 L MCHC 31.3 L RDW 16.9 H Plt Count 122 L D MPV 10.9 Neut % (Auto) 67.2 Lymph % (Auto) 12.3 L Otoe % (Auto) 17.4 H Eos % (Auto) 2.1 Baso % (Auto) 1.0 Neut # (Auto) 3.4 Lymph # (Auto) 0.6 L Otoe # (Auto) 0.9 H Eos # (Auto) 0.1 Baso # (Auto) 0.1 Sodium 135 Potassium 5.2 H Chloride 98 Carbon Dioxide 22 Anion Gap 20 BUN 56 H Creatinine 1.8 H Est GFR ( Amer) 43 Est GFR (Non-Af Amer) 36 Random Glucose 109 Calcium 9.2 Total Bilirubin 0.6 AST 23 ALT 22 Alkaline Phosphatase 79 NT-Pro-B Natriuret Pep 2200 H Total Protein 7.6 Albumin 4.5 Globulin 3.1 Albumin/Globulin Ratio 1.5 Attending/Attestation - Attestation I have personally seen and examined this patient.: Yes I have fully participated in the care of the patient.: Yes I have reviewed all pertinent clinical information: Yes Notes (Text): I saw, examined and discussed this patient with Dr Cronin. I agree with the assessment and plan outlined. 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 He comes with SOB on mild exertion with bilateral edema and painful abdominal distention.. The Hb is 8.2g/dl and the Pro BNP is 2200 and EKG of 63beats/ min with paced and captured beats and periods of pacemaker failure and probably a 3rd degree AV block. We will treat an acute on chronic CHF, ECHO to assess for Pericardial Effusion, chamber size, wall motion and valvular pathology. We will consult with the Patient Safety Officer. Follow Troponin and repeated EKG. Follow Iron Panel for the Microcytic anemia. Follow electrolytes and renal labs for the hyperkalemia and Acute kidney injury.The abdominal pain could be caused by Ascites and or constipation. Follow Abdominal/ pelvis CT scan Chet Pritchard MD
[2019-01-01] MEDS ORDERED: Pneumococcal 23-Valent Vaccine IM ONE (03:06)
[2019-01-01 06:21] LABS: BASO # 0.1 K/uL (0.0-0.2); BASO % 1.3 % (0.0-2.0); EOS # 0.1 K/uL (0.0-0.7); EOS % 2.6 % (0.0-4.0); HEMOGLOBIN 8.2 g/dL (12.0-18.0); LYMPH % 19.5 % (20.0-40.0); MEAN CELL VOLUME 74.3 fl (80.0-94.0); MEAN CORPUSCULAR HGB CONC 32.3 g/dL (33.0-37.0); MEAN PLATELET VOLUME 11.5 fl (7.2-11.7); MONO # 0.8 K/uL (0.0-0.8); MONO % 17.3 % (0.0-10.0); NEUT # 2.9 K/uL (1.8-7.0); NEUT % 59.3 % (50.0-75.0); RBC 3.4 Mil/uL (4.40-5.90); RED CELL DISTRIBUTION WIDTH 16.6 % (11.5-14.5); WHITE BLOOD COUNT 4.9 K/uL (4.8-10.8)
[2019-01-01 06:25] LABS: INR 1.8; PROTHROMBIN TIME 20.2 Seconds (9.8-13.1)
[2019-01-01 06:28] LABS: CALCIUM 9.3 mg/dL (8.4-10.2); PARTIAL THROMBOPLASTIN TIME 33.9 Seconds (25.6-37.1)
[2019-01-01 06:33] LABS: IRON 28 ug/dL (49-181)
[2019-01-01 06:40] LABS: TROPONIN I 0.023 ng/mL (0.00-0.120)
[2019-01-01 06:43] LABS: % IRON SATURATION 7 % (20-55); TOTAL IRON BINDING CAPACITY 406 ug/dL (250-450)
[2019-01-01 07:03] LABS: FERRITIN 12.1 ng/Ml (17.9-464)
--- NOTE | 2019-01-01 08:55 | CP.PCM.PN ---
<DoraYanna - Last Filed: 01/01/19 11:46> Subjective - Date & Time of Evaluation Date of Evaluation: 01/01/19 Time of Evaluation: 09:00 - Subjective Subjective: Patient seen and examined at bedside. Is eating. Reports lower extremity redness and pruritis. Denies chest pain, dypsnea, nausea, vomiting and dysuria. Objective - Vital Signs/Intake and Output Vital Signs (last 24 hours): Temp Pulse Resp BP Pulse Ox 97.9 F 60 18 140/78 100 01/01/19 07:53 01/01/19 07:53 01/01/19 07:53 01/01/19 07:53 01/01/19 07:53 - Medications Medications: Current Medications Acetaminophen (Tylenol 325mg Tab) 650 mg PO Q6 PRN PRN Reason: Fever >100.4 F Apixaban (Eliquis) 5 mg PO BID [facility]; Protocol Aspirin (Aspirin Chewable) 81 mg PO DAILY [facility] Atorvastatin Calcium (Lipitor) 20 mg PO DAILY [facility] Carvedilol (Coreg) 25 mg PO BID [facility] Docusate Sodium (Colace) 100 mg PO DAILY [facility] Famotidine (Pepcid) 40 mg PO DAILY [facility] Fenofibrate (Tricor) 145 mg PO DAILY [facility] Finasteride (Proscar) 5 mg PO DAILY [facility] Furosemide (Lasix) 40 mg IVP DAILY [facility] Iron Sucrose 100 mg/ Sodium (Chloride) 105 mls @ 105 mls/hr IVPB DAILY [facility] Losartan Potassium (Cozaar) 50 mg PO DAILY [facility] Meclizine HCl (Antivert) 25 mg PO TID [facility] Phenytoin Sodium (Dilantin) 100 mg PO TID [facility] - Labs Labs: 01/01/19 04:30 01/01/19 04:30 PT 20.2 Seconds (9.8-13.1) H 01/01/19 04:30 INR 1.8 01/01/19 04:30 APTT 33.9 Seconds (25.6-37.1) 01/01/19 04:30 - Constitutional Appears: Non-toxic, No Acute Distress - Eye Exam Eye Exam: Normal appearance - ENT Exam ENT Exam: Mucous Membranes Moist - Respiratory Exam Respiratory Exam: Clear to Ausculation Bilateral, NORMAL BREATHING PATTERN. absent: Accessory Muscle Use, Chest Wall Tenderness, Decreased Breath Sounds, Prolonged Expiratory Phase, Rales, Rhonchi, Wheezes, Respiratory Distress, Stridor - Cardiovascular Exam Cardiovascular Exam: +S1, +S2 - GI/Abdominal Exam GI & Abdominal Exam: Soft, Normal Bowel Sounds. absent: Distended, Firm, Guarding, Rigid, Tenderness, Rebound - Extremities Exam Extremities Exam: Calf Tenderness, Normal Capillary Refill, Pedal Edema (+1), Tenderness (Anterior malik tenderness ) Additional comments: Erythema noted on bilateral shins; +2 dorsalis pedis and tibialis pedis. - Neurological Exam Neurological Exam: Alert, Awake, Oriented x3 - Psychiatric Exam Psychiatric exam: Normal Affect, Normal Mood - Skin Skin Exam: Dry, Intact, Normal Color, Warm Assessment and Plan - Assessment and Plan (Free Text) Assessment: 88 yo Male with PMHx of NIDDM2, Pacemaker, HTN, Afib, seizures is admitted for CHF exacerbation. Plan: 1. CHF exacerbation -likely acute on chronic -Echo 05/2018, EF 60-65 -CXR change in cardiac siloutte noted from last CXR -elevated pro-bnp (2200) -c/w lasix daily -echo pending read 2. Ascites -acute, likely 2/2 to CHF - CT abdomen: cirrhotic manifestation of the liver; interval appearance of small amount of acites in the abdomen and pelvis; mild anasarca. Cardiomegaly. Moderate right sided pleural effusion. -consider paracentesis, fluid analysis -IV lasix 3. Bilateral lower extremity erythema - possibly secondary to CHF exacerbation (pedal edema) vs. venous changes - F/U duplex 4. UMA -likely 2/2 to CHF -BUN/CR: 55/1.7 -acute on chronic -c/t to monitor 5. Hyperkalemia resolved (4.4) -s/p Lasix -follow up AM lab 6. Anemia/thrombocytopenia -acute on chronic -microcytic anemia -F/U iron studies and coags ordered -FOBT ordered - Venofer ordered 7. Afib/pacemaker -chronic -c/w home meds 8. HTN -controlled -c.w home meds 9. NIDDM -c/w home meds -HbA1c 5.7 (05/2018) 10. Seizures -chronic, controlled -c.w home meds 11. DVT prolx -c/w Sherri Snider - Last Filed: 01/01/19 15:39> Objective - Vital Signs/Intake and Output Vital Signs (last 24 hours): Temp Pulse Resp BP Pulse Ox 98.0 F 60 18 113/68 100 01/01/19 11:44 01/01/19 11:44 01/01/19 11:44 01/01/19 11:44 01/01/19 11:44 - Medications Medications: Current Medications Acetaminophen (Tylenol 325mg Tab) 650 mg PO Q6 PRN PRN Reason: Fever >100.4 F Apixaban (Eliquis) 2.5 mg PO BID [facility]; Protocol Aspirin (Aspirin Chewable) 81 mg PO DAILY [facility] Last Admin: 01/01/19 09:25 Dose: 81 mg Atorvastatin Calcium (Lipitor) 20 mg PO DAILY [facility] Last Admin: 01/01/19 09:28 Dose: 20 mg Carvedilol (Coreg) 25 mg PO BID [facility] Last Admin: 01/01/19 09:26 Dose: 25 mg Docusate Sodium (Colace) 100 mg PO DAILY [facility] Last Admin: 01/01/19 09:25 Dose: 100 mg Famotidine (Pepcid) 40 mg PO DAILY [facility] Last Admin: 01/01/19 09:28 Dose: 40 mg Fenofibrate (Tricor) 145 mg PO DAILY [facility] Last Admin: 01/01/19 09:29 Dose: 145 mg Finasteride (Proscar) 5 mg PO DAILY [facility] Last Admin: 01/01/19 09:29 Dose: 5 mg Furosemide (Lasix) 40 mg IVP DAILY [facility] Last Admin: 01/01/19 09:28 Dose: 40 mg Iron Sucrose 100 mg/ Sodium (Chloride) 105 mls @ 105 mls/hr IVPB DAILY [facility] Last Admin: 01/01/19 09:30 Dose: 105 mls/hr Magnesium Sulfate (Magnesium Sulfate 2 Gm/50 Ml Water) 2 gm in 50 mls @ 50 mls/hr IVPB ONCE ONE Stop: 01/01/19 16:08 Losartan Potassium (Cozaar) 50 mg PO DAILY [facility] Last Admin: 01/01/19 09:27 Dose: 50 mg Meclizine HCl (Antivert) 25 mg PO TID [facility] Last Admin: 01/01/19 13:31 Dose: 25 mg Phenytoin Sodium (Dilantin) 100 mg PO TID [facility] Last Admin: 01/01/19 13:31 Dose: 100 mg - Labs Labs: 01/01/19 04:30 01/01/19 04:30 PT 20.2 Seconds (9.8-13.1) H 01/01/19 04:30 INR 1.8 01/01/19 04:30 APTT 33.9 Seconds (25.6-37.1) 01/01/19 04:30 Attending/Attestation - Attestation I have personally seen and examined this patient.: Yes I have fully participated in the care of the patient.: Yes I have reviewed all pertinent clinical information, including history, physical exam and plan: Yes Notes (Text): Acute CHF exacerbation on chronic , prob systolic and diastolic dysfunction, EF to be determined A Fib, paroxysmal s/p Pacemaker Cirrhosis ? 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
[2019-01-01] MEDS ORDERED: Patient's Own Med (Dutasteride [Avodart] 0.5 MG) PO SCH (09:00)
--- NOTE | 2019-01-01 09:09 | CT ---
Date of service: 01/01/2019 PROCEDURE: CT Abdomen and Pelvis without intravenous contrast HISTORY: Epigastric and pelvic pain COMPARISON: Comparison is made to the previous study dated 05/26/2018 TECHNIQUE: Axial and reformatted coronal and sagittal CT images of the abdomen and pelvis were obtained without IV or oral contrast administration.. Contrast dose: 0 Radiation dose: Total exam DLP = 637.23 mGy-cm. This CT exam was performed using one or more of the following dose reduction techniques: Automated exposure control, adjustment of the mA and/or kV according to patient size, and/or use of iterative reconstruction technique. FINDINGS: LOWER THORAX: Cardiomegaly is again noted. There are pacemaker wires seen extending to the right heart. There is small to moderate amount of right pleural effusion. Mild pulmonary vascular congestion is noted. LIVER: Cirrhotic manifestation of the liver are again noted. Mild hepatomegaly is again noted. Limited evaluation without IV contrast. No gross lesion or ductal dilatation noted. GALLBLADDER AND BILE DUCTS: No CT evidence of acute cholecystitis. Possible small gallstones. PANCREAS: Small size pancreas is again noted. The main pancreatic duct is not dilated. SPLEEN: Unremarkable. ADRENALS: Unremarkable. No mass. KIDNEYS AND URETERS: Unremarkable. No hydronephrosis. No solid mass. VASCULATURE: There Is right renal artery stent again seen in place. No aortic aneurysm. Foci of atherosclerotic calcification in the abdominal aorta and iliac arteries are noted. BOWEL: Unremarkable. No obstruction. No gross mural thickening. APPENDIX: Unremarkable. Normal appendix. PERITONEUM: There is small amount of ascites in the abdomen and pelvis. LYMPH NODES: Unremarkable. No enlarged lymph nodes. BLADDER: Unremarkable. REPRODUCTIVE: Unremarkable. BONES: No acute fracture. Diffuse osteopenia is again noted. Superior endplate Schmorl nodes at L2 is again noted. OTHER FINDINGS: There is diffuse mild soft tissue edema noted. Distal esophagus mucosal thickening is also noted. IMPRESSION: Cirrhotic manifestation of the liver. Interval appearance of small amount of ascites in the abdomen and pelvis since the prior study. Mild anasarca. Cardiomegaly. Moderate right-sided pleural effusion.
--- NOTE | 2019-01-01 10:48 | CARD ---
APPROVED REPORT Date of service: 01/01/2019 EKG Measurement Heart [id number] <Conclusion> Ventricular-paced rhythm Abnormal ECG
--- NOTE | 2019-01-01 11:10 | RAD ---
Date of service: 12/31/2018 HISTORY: Shortness of breath. COMPARISON: 05/26/2018 TECHNIQUE: Chest PA and lateral views FINDINGS: LUNGS: No active pulmonary disease. PLEURA: No significant pleural effusion identified. No pneumothorax apparent. CARDIOVASCULAR: No aortic atherosclerotic calcification present. Position/ configuration of pacemaker Cardiomegaly. No evidence of acute, significant cardiovascular disease. No pulmonary vascular congestion. OSSEOUS STRUCTURES: No significant abnormalities. VISUALIZED UPPER ABDOMEN: Normal. OTHER FINDINGS: None. IMPRESSION: No active disease. Resolved CHF noted previously.
[2019-01-01] MEDS ORDERED: Magnesium Sulfate 2 gm/50 ml 2 GM/50 ML BAG IVPB ONE (15:09)
--- NOTE | 2019-01-01 17:26 | CARD ---
APPROVED REPORT Date of service: 01/01/2019 EXAM: Two-dimensional and M-mode echocardiogram with Doppler and color Doppler. Other Information Quality : GoodRhythm : Pacemaker INDICATION Congestive Heart Failure Surgery/Intervention ICD/Pacemaker: 2D DIMENSIONS IVSd1.45 (0.7-1.1cm)LVDd4.43 (3.9-5.9cm) LVOT Diameter1.88 (1.8-2.4cm)PWd0.88 (0.7-1.1cm) IVSs1.64 (0.8-1.2cm)LVDs2.99 (2.5-4.0cm) FS (%) 32.6 %PWs1.51 (0.8-1.2cm) M-Mode DIMENSIONS Left Atrium (MM)5.35 (2.5-4.0cm)IVSd1.15 (0.7-1.1cm) Aortic Root3.09 (2.2-3.7cm)LVDd4.44 (4.0-5.6cm) Aortic Cusp Exc.1.71 (1.5-2.0cm)PWd1.12 (0.7-1.1cm) IVSs1.62 cmFS (%) 39 % LVDs2.71 (2.0-3.8cm)PWs1.76 cm Aortic Valve AoV Peak Rbbddrmc185.6cm/sAoV VTI22.3cmAO Peak GR.5mmHg LVOT Peak Ungwamwn21.2cm/sLVOT VTI12.17cmAO Mean GR.2mmHg RADHA (VMAX)0.87nb3JCF (VTI)0.72cm2 Mitral Valve E/A ratio0.0 TDI E/Lateral E'0.0E/Medial E'0.0 Tricuspid Valve TR Peak [id number]/sRAP [id number] Peak Gr.50mmHg [id number] LEFT VENTRICLE The left ventricle is normal size. There is mild concentric left ventricular hypertrophy. The left ventricular systolic function is normal. The estimated ejection fraction is 55-60% No regional wall motion abnormalities noted.. The left ventricular diastolic function cannot be assessed due to underlying paced rhythm. No left ventricle thrombus noted on this study. There is no ventricular septal defect visualized. There is no left ventricular aneurysm. There is no mass noted in the left ventricle. RIGHT VENTRICLE The right ventricle is normal size. There is normal right ventricular wall thickness. The right ventricular systolic function is normal. A PPM lead is noted in right ventricle. ATRIA The left atrium is severely dilated. The right atrium size is normal. The interatrial septum is intact with no evidence for an atrial septal defect. AORTIC VALVE The aortic valve is normal in structure. No aortic regurgitation is present. There is no aortic valvular stenosis. There is no aortic valvular vegetation. MITRAL VALVE The mitral valve is normal in structure. There is no evidence of mitral valve prolapse. There is no mitral valve stenosis. There is moderate mitral valve regurgitation noted. TRICUSPID VALVE The tricuspid valve is normal in structure. There is moderate to severe tricuspid valve regurgitation noted. RVSP is calculate at 65 mm Hg, consistent with moderate pulmonary HTN. There is no tricuspid valve prolapse or vegetation. There is no tricuspid valve stenosis. PULMONIC VALVE The pulmonary valve is normal in structure. There is trace pulmonic valvular regurgitation. There is no pulmonic valvular stenosis. GREAT VESSELS The aortic root is normal in size. The ascending aorta is normal in size. The pulmonary artery is normal. The IVC is dilated in size and collapses <50% with inspiration. PERICARDIAL EFFUSION There is no pericardial effusion. There is no pleural effusion. <Conclusion> There is mild concentric left ventricular hypertrophy. The estimated ejection fraction is 55-60% The left ventricular diastolic function cannot be assessed due to underlying paced rhythm. The left atrium is severely dilated. There is moderate mitral valve regurgitation noted. There is moderate to severe tricuspid valve regurgitation noted. RVSP is calculate at 65 mm Hg, consistent with moderate pulmonary HTN. A PPM lead is noted in right ventricle. The IVC is dilated in size and collapses <50% with inspiration.
[2019-01-02 07:25] LABS: CALCIUM 9.4 mg/dL (8.4-10.2)
[2019-01-02 07:32] LABS: HEMOGLOBIN 8.2 g/dL (12.0-18.0); MEAN CELL VOLUME 73.5 fl (80.0-94.0); MEAN CORPUSCULAR HEMOGLOBIN 23.8 pg (27.0-31.0); MEAN CORPUSCULAR HGB CONC 32.4 g/dL (33.0-37.0); RBC 3.44 Mil/uL (4.40-5.90); RED CELL DISTRIBUTION WIDTH 16.8 % (11.5-14.5); WHITE BLOOD COUNT 5.7 K/uL (4.8-10.8)
[2019-01-02 10:59] LABS: HEPATITIS B SURFACE AG Negative (NEGATIVE)
[2019-01-02 11:05] LABS: HEPATITIS A IGM NEGATIVE (NEGATIVE); HEPATITIS B CORE AB NEGATIVE (NEGATIVE)
[2019-01-02 11:16] LABS: HEPATITIS C ANTIBODY NEGATIVE (NEGATIVE)
[2019-01-02 11:17] LABS: CALCIUM 9.3 mg/dL (8.4-10.2)
--- NOTE | 2019-01-02 13:20 | CP.PCM.PN ---
<Bautista Mann - Last Filed: 01/02/19 13:31> Subjective - Date & Time of Evaluation Date of Evaluation: 01/02/19 Time of Evaluation: 07:20 - Subjective Subjective: patient seen and examined. No acute event overnight. Patient have no complains. upon examination patient still was weak, and had b/l pedal edema. Objective - Vital Signs/Intake and Output Vital Signs (last 24 hours): Temp Pulse Resp BP Pulse Ox 97.3 F L 61 20 99/59 L 100 01/02/19 12:26 01/02/19 12:26 01/02/19 12:26 01/02/19 12:26 01/02/19 12:26 - Medications Medications: Current Medications Acetaminophen (Tylenol 325mg Tab) 650 mg PO Q6 PRN PRN Reason: Fever >100.4 F Apixaban (Eliquis) 2.5 mg PO BID [facility]; Protocol Last Admin: 01/02/19 09:24 Dose: 2.5 mg Aspirin (Aspirin Chewable) 81 mg PO DAILY [facility] Last Admin: 01/02/19 09:25 Dose: 81 mg Atorvastatin Calcium (Lipitor) 10 mg PO DAILY [facility] Last Admin: 01/02/19 09:26 Dose: 10 mg Carvedilol (Coreg) 25 mg PO BID [facility] Last Admin: 01/02/19 09:25 Dose: 25 mg Docusate Sodium (Colace) 100 mg PO DAILY [facility] Last Admin: 01/02/19 09:25 Dose: 100 mg Famotidine (Pepcid) 40 mg PO DAILY [facility] Last Admin: 01/02/19 09:26 Dose: 40 mg Fenofibrate (Tricor) 48 mg PO DAILY [facility] Last Admin: 01/02/19 09:24 Dose: 48 mg Finasteride (Proscar) 5 mg PO DAILY [facility] Last Admin: 01/02/19 09:26 Dose: 5 mg Furosemide (Lasix) 40 mg IVP DAILY [facility] Last Admin: 01/02/19 09:26 Dose: 40 mg Iron Sucrose 100 mg/ Sodium (Chloride) 105 mls @ 105 mls/hr IVPB DAILY [facility] Last Admin: 01/02/19 09:24 Dose: 105 mls/hr Losartan Potassium (Cozaar) 50 mg PO DAILY [facility] Last Admin: 01/02/19 09:24 Dose: 50 mg Meclizine HCl (Antivert) 25 mg PO TID [facility] Last Admin: 01/01/19 17:18 Dose: 25 mg Phenytoin Sodium (Dilantin) 100 mg PO TID [facility] Last Admin: 01/02/19 09:24 Dose: 100 mg - Labs Labs: 01/02/19 05:16 01/02/19 10:25 PT 20.2 Seconds (9.8-13.1) H 01/01/19 04:30 INR 1.8 01/01/19 04:30 APTT 33.9 Seconds (25.6-37.1) 01/01/19 04:30 - Constitutional Appears: Well, Non-toxic, No Acute Distress - Head Exam Head Exam: ATRAUMATIC, NORMAL INSPECTION, NORMOCEPHALIC - Eye Exam Eye Exam: EOMI, Normal appearance, PERRL Pupil Exam: NORMAL ACCOMODATION, PERRL - ENT Exam ENT Exam: Mucous Membranes Moist, Normal Exam - Neck Exam Neck Exam: Full ROM, Normal Inspection - Respiratory Exam Respiratory Exam: Rales, NORMAL BREATHING PATTERN - Cardiovascular Exam Cardiovascular Exam: REGULAR RHYTHM, +S1, +S2 - GI/Abdominal Exam GI & Abdominal Exam: Soft, Normal Bowel Sounds - Extremities Exam Extremities Exam: Full ROM, Normal Capillary Refill, Normal Inspection, Pedal Edema - Psychiatric Exam Psychiatric exam: Normal Affect, Normal Mood - Skin Skin Exam: Dry, Intact, Normal Color, Warm Assessment and Plan - Assessment and Plan (Free Text) Assessment: 88 yo Male with PMHx of NIDDM2, Pacemaker, HTN, Afib, seizures is admitted for CHF exacerbation. Plan: ECHO: Mild concentric LVH , EJ 55-60%, LVDF unable to assess due to underlying paced rhythm, Left atrium severely dialated, Mod mitral valve regurgitation, mod severe tricuspid valv reurg. RVSP 65mm HG. Consist with pulm htn PPM lead is noted in R ventricule IVC dilated collapses <50% with inspiration. 1. CHF exacerbation -likely acute on chronic -Echo 05/2018, EF 60-65 -CXR change in cardiac siloutte noted from last CXR -elevated pro-bnp (2200) -c/w lasix daily -F/U Duplex 2. Ascites -acute, likely 2/2 to CHF - CT abdomen: cirrhotic manifestation of the liver; interval appearance of small amount of acites in the abdomen and pelvis; mild anasarca. Cardiomegaly. Moderate right sided pleural effusion. -consider paracentesis, fluid analysis -IV lasix -decrease atrovastatin to 10mg -Start fenofibrate 3. Bilateral lower extremity erythema - possibly secondary to CHF exacerbation (pedal edema) vs. venous changes - F/U duplex 4. UMA -likely 2/2 to CHF -BUN/CR: 54/1.6 -acute on chronic -c/t to monitor -Stop metformin 5. Hyperkalemia resolved (4.3) -s/p Lasix 6. Anemia/thrombocytopenia -acute on chronic -microcytic anemia -F/U iron studies and coags ordered -FOBT ordered - Venofer ordered 7. Afib/pacemaker -chronic -c/w home meds 8. HTN -controlled -c.w home meds -decrease atrovastatin to 10mg 9. NIDDM -c/w home meds -HbA1c 5.7 (05/2018) -DC metformin -Continue Januvia 10. Seizures -chronic, controlled -c.w home meds 11. DVT prolx -c/w eliquis <Sherri Wright - Last Filed: 01/02/19 14:19> Objective - Vital Signs/Intake and Output Vital Signs (last 24 hours): Temp Pulse Resp BP Pulse Ox 97.3 F L 61 20 99/59 L 100 01/02/19 12:26 01/02/19 12:26 01/02/19 12:26 01/02/19 12:26 01/02/19 12:26 - Medications Medications: Current Medications Acetaminophen (Tylenol 325mg Tab) 650 mg PO Q6 PRN PRN Reason: Fever >100.4 F Apixaban (Eliquis) 2.5 mg PO BID [facility]; Protocol Last Admin: 01/02/19 09:24 Dose: 2.5 mg Aspirin (Aspirin Chewable) 81 mg PO DAILY [facility] Last Admin: 01/02/19 09:25 Dose: 81 mg Atorvastatin Calcium (Lipitor) 10 mg PO DAILY [facility] Last Admin: 01/02/19 09:26 Dose: 10 mg Carvedilol (Coreg) 25 mg PO BID [facility] Last Admin: 01/02/19 09:25 Dose: 25 mg Docusate Sodium (Colace) 100 mg PO DAILY [facility] Last Admin: 05/18/19 09:25 Dose: 100 mg Famotidine (Pepcid) 40 mg PO DAILY [facility] Last Admin: 01/02/19 09:26 Dose: 40 mg Fenofibrate (Tricor) 48 mg PO DAILY [facility] Last Admin: 01/02/19 09:24 Dose: 48 mg Finasteride (Proscar) 5 mg PO DAILY [facility] Last Admin: 01/02/19 09:26 Dose: 5 mg Furosemide (Lasix) 40 mg IVP DAILY [facility] Last Admin: 01/02/19 09:26 Dose: 40 mg Iron Sucrose 100 mg/ Sodium (Chloride) 105 mls @ 105 mls/hr IVPB DAILY [facility] Last Admin: 01/02/19 09:24 Dose: 105 mls/hr Losartan Potassium (Cozaar) 50 mg PO DAILY [facility] Last Admin: 01/02/19 09:24 Dose: 50 mg Meclizine HCl (Antivert) 25 mg PO TID [facility] Last Admin: 01/01/19 17:18 Dose: 25 mg Phenytoin Sodium (Dilantin) 100 mg PO TID [facility] Last Admin: 01/02/19 13:40 Dose: 100 mg - Labs Labs: 01/02/19 05:16 01/02/19 10:25 PT 20.2 Seconds (9.8-13.1) H 01/01/19 04:30 INR 1.8 01/01/19 04:30 APTT 33.9 Seconds (25.6-37.1) 01/01/19 04:30 Attending/Attestation - Attestation I have personally seen and examined this patient.: Yes I have fully participated in the care of the patient.: Yes I have reviewed all pertinent clinical information, including history, physical exam and plan: Yes Notes (Text): Acute CHF exacerbation on chronic , systolic and diastolic dysfunction, EF =55% A Fib, paroxysmal s/p Pacemaker Cirrhosis with Ascites ? etiology - ? 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
[2019-01-03 06:46] LABS: HEMOGLOBIN 8.1 g/dL (12.0-18.0); MEAN CELL VOLUME 74.2 fl (80.0-94.0); MEAN CORPUSCULAR HEMOGLOBIN 23.8 pg (27.0-31.0); MEAN CORPUSCULAR HGB CONC 32.1 g/dL (33.0-37.0); RBC 3.4 Mil/uL (4.40-5.90); RED CELL DISTRIBUTION WIDTH 16.8 % (11.5-14.5); WHITE BLOOD COUNT 5.6 K/uL (4.8-10.8)
[2019-01-03] MEDS ORDERED: POLYETHYLENE GLYCOL 3350 17 GM/Dose PACKET PO PRN (09:38)
--- NOTE | 2019-01-03 09:38 | CP.PCM.PN ---
Subjective - Date & Time of Evaluation Date of Evaluation: 01/03/19 Time of Evaluation: 07:00 - Subjective Subjective: Patient seen and examined at bedside today, no acute event overnight. No complain as per today. Patient report better breathing and less swollen Objective - Vital Signs/Intake and Output Vital Signs (last 24 hours): Temp Pulse Resp BP Pulse Ox 97.7 F 62 20 108/67 98 01/03/19 08:19 01/03/19 08:19 01/03/19 08:19 01/03/19 09:10 01/03/19 08:19 - Medications Medications: Current Medications Acetaminophen (Tylenol 325mg Tab) 650 mg PO Q6 PRN PRN Reason: Fever >100.4 F Apixaban (Eliquis) 2.5 mg PO BID [facility]; Protocol Last Admin: 01/03/19 09:10 Dose: 2.5 mg Aspirin (Aspirin Chewable) 81 mg PO DAILY [facility] Last Admin: 01/03/19 09:08 Dose: 81 mg Atorvastatin Calcium (Lipitor) 10 mg PO DAILY [facility] Last Admin: 01/03/19 09:11 Dose: 10 mg Carvedilol (Coreg) 25 mg PO BID [facility] Last Admin: 01/03/19 09:09 Dose: 25 mg Docusate Sodium (Colace) 100 mg PO DAILY [facility] Last Admin: 01/03/19 09:08 Dose: 100 mg Famotidine (Pepcid) 40 mg PO DAILY [facility] Last Admin: 01/03/19 09:11 Dose: 40 mg Fenofibrate (Tricor) 48 mg PO DAILY [facility] Last Admin: 01/03/19 09:12 Dose: 48 mg Finasteride (Proscar) 5 mg PO DAILY [facility] Last Admin: 01/03/19 09:12 Dose: 5 mg Furosemide (Lasix) 40 mg IVP DAILY [facility] Last Admin: 01/03/19 09:10 Dose: 40 mg Iron Sucrose 100 mg/ Sodium (Chloride) 105 mls @ 105 mls/hr IVPB DAILY [facility] Last Admin: 01/03/19 09:06 Dose: 105 mls/hr Losartan Potassium (Cozaar) 50 mg PO DAILY [facility] Last Admin: 01/03/19 09:09 Dose: 50 mg Meclizine HCl (Antivert) 25 mg PO TID [facility] Last Admin: 01/01/19 17:18 Dose: 25 mg Phenytoin Sodium (Dilantin) 100 mg PO TID [facility] Last Admin: 01/03/19 09:10 Dose: 100 mg Polyethylene Glycol (Miralax) 17 gm PO PRN PRN PRN Reason: Constipation - Labs Labs: 01/03/19 05:21 01/03/19 05:21 PT 20.2 Seconds (9.8-13.1) H 01/01/19 04:30 INR 1.8 01/01/19 04:30 APTT 33.9 Seconds (25.6-37.1) 01/01/19 04:30 - Constitutional Appears: Well, Non-toxic, No Acute Distress - Head Exam Head Exam: ATRAUMATIC, NORMAL INSPECTION, NORMOCEPHALIC - Eye Exam Eye Exam: EOMI, Normal appearance, PERRL Pupil Exam: NORMAL ACCOMODATION, PERRL - ENT Exam ENT Exam: Mucous Membranes Moist, Normal Exam - Neck Exam Neck Exam: Full ROM, Normal Inspection - Respiratory Exam Respiratory Exam: Clear to Ausculation Bilateral, NORMAL BREATHING PATTERN - Cardiovascular Exam Cardiovascular Exam: REGULAR RHYTHM, +S1, +S2 - GI/Abdominal Exam GI & Abdominal Exam: Soft, Normal Bowel Sounds - Extremities Exam Extremities Exam: Full ROM, Normal Inspection - Back Exam Back Exam: NORMAL INSPECTION - Neurological Exam Neurological Exam: Alert, Awake - Psychiatric Exam Psychiatric exam: Normal Affect, Normal Mood - Skin Skin Exam: Dry, Intact, Normal Color, Warm Assessment and Plan - Assessment and Plan (Free Text) Assessment: 88 yo Male with PMHx of NIDDM2, Pacemaker, HTN, Afib, seizures is admitted for CHF exacerbation. Improved Plan: ECHO: Mild concentric LVH , EJ 55-60%, LVDF unable to assess due to underlying paced rhythm, Left atrium severely dialated, Mod mitral valve regurgitation, mod severe tricuspid valv reurg. RVSP 65mm HG. Consist with pulm htn PPM lead is noted in R ventricule IVC dilated collapses <50% with inspiration. 1. CHF exacerbation Improved Lung are clear Pedal edema resolved Echo 05/2018, EF 60-65 elevated pro-bnp (2200) c/w lasix daily F/U Duplex 2. Ascites -acute, likely 2/2 to CHF + Liver cirrosis - CT abdomen: cirrhotic manifestation of the liver; interval appearance of small amount of acites in the abdomen and pelvis; mild anasarca. Cardiomegaly. Moderate right sided pleural effusion. -IV lasix -atorvastatin to 10mg -Fenofibrate 3. Bilateral lower extremity erythema - Resolved - F/U duplex 4. UMA -Improving -likely 2/2 to CHF -BUN/CR: 45/1.5 -acute on chronic -c/t to monitor -metformin stopped 5. Hyperkalemia resolved (4.3) 6. Anemia/thrombocytopenia -acute on chronic -microcytic anemia -F/U FOBT - Venofer started 7. Afib/pacemaker -chronic -c/w home meds 8. HTN -controlled -c.w home meds - atrovastatin 10mg 9. NIDDM -c/w home meds -HbA1c 5.7 (05/2018) -DC metformin -Continue 10. Seizures -chronic, controlled -c.w home meds 11. DVT prolx -c/w vielka
--- NOTE | 2019-01-03 17:52 | US ---
Date of service: 01/03/2019 PROCEDURE: Bilateral lower extremity venous duplex Doppler. HISTORY: lower extremity pain COMPARISON: None available. TECHNIQUE: Bilateral common femoral, superficial femoral, popliteal and posterior tibial veins were evaluated. Flow was assessed with color Doppler, compressibility, assessment of phasic flow and augmentation response. FINDINGS: COMMON FEMORAL VEIN: Right CFV: Unremarkable. Left CFV: Unremarkable. SUPERFICIAL FEMORAL VEIN: Right SFV: Unremarkable. Left SFV: Unremarkable. POPLITEAL VEIN: Right Popliteal: Unremarkable. Left Popliteal: Unremarkable. POSTERIOR TIBIAL VEIN: Right PTV: Unremarkable. Left PTV: Unremarkable. OTHER FINDINGS: None. IMPRESSION: No evidence of deep venous thrombosis in the right or left lower extremity.
[2019-01-04 05:44] LABS: MEAN CELL VOLUME 73.9 fl (80.0-94.0); MEAN CORPUSCULAR HEMOGLOBIN 24.2 pg (27.0-31.0); MEAN CORPUSCULAR HGB CONC 32.8 g/dL (33.0-37.0); RBC 3.32 Mil/uL (4.40-5.90); RED CELL DISTRIBUTION WIDTH 16.7 % (11.5-14.5); WHITE BLOOD COUNT 6.3 K/uL (4.8-10.8)
[2019-01-04 05:50] LABS: CALCIUM 8.9 mg/dL (8.4-10.2)
[2019-01-04 08:32] VITALS: RESP 20; O2SAT 100
--- NOTE | 2019-01-04 10:17 | CP.PCM.CON ---
History of Present Illness - History of Present Illness History of Present Illness: This 88-year-old man came to the emergency room with worsening dyspnea. He has a long history of congestive cardiac failure and atrial fibrillation. He has been a diabetic hypertensive and has required a pacemaker which was recently checked on October 21, 2018 and showed appropriate pacemaker function. The patient has significant diabetic nephropathy and diabetic retinopathy. I discussed his case at length with his chemotherapist. I was asked to see the patient for possible macarena maker malfunction. Physical examination shows an elderly man with severe hearing and vision deficit. He answers questions appropriately. He reports significant relief of his dyspnea following diuresis here in the hospital. Physical examination shows an elderly man with a heart rate which ranges between 60 and 80 bpm in atrial fibrillation with appropriate VVI pacemaker response. His blood pressure was 110/70 mmHg. His jugular venous pressure was mildly elevated there was pitting edema over both lower extremities. The pedal pulses were not palpable. The apex was in the 6 space slightly heaving in character the first heart sound was muffled the second heart sound was normal there was a apical systolic murmur of mitral regurgitation. There were few scattered rales at both bases. His abdomen was protuberant. No organomegaly could be detected there was evidence of ascites. His electrocardiogram in the emergency room showed atrial flutter with appropriate VVI pacemaker response. There was poor progression of R wave from V2 to V4. His echocardiogram from 2 days back was also reviewed. There was significant pulmonary hypertension and a dilated left atrium. Lab data was noted. Impression: Congestive cardiac failure which is left ventricular diastolic and chronic. Chronic atrial flutter fibrillation with status post DDD pacemaker which now functions in a VVI mode because of atrial fibrillation. The pacemaker was checked in his chemotherapist's office on October 21, 2018 and shows appropriate function. The battery life is estimated between 8 and 10 years. The patient at this juncture is being treated with appropriate medications and no further testing or intervention is necessary at this juncture. Past Patient History - Past Medical History & Family History Past Medical History?: Yes - Past Social History Alcohol: None Drugs: Denies - CARDIAC Hx Atrial Fibrillation: Yes Hx Cardia Arrhythmia: Yes Hx Congestive Heart Failure: Yes Hx Hypercholesterolemia: Yes Hx Hypertension: Yes Hx Pacemaker: Yes Hx Peripheral Edema: Yes - PULMONARY Hx Respiratory Disorders: No - NEUROLOGICAL Hx Seizures: Yes - HEENT Hx Blind: Yes Hx Cataracts: Yes Hx Deafness: Yes Hx Glaucoma: Yes - RENAL Hx Chronic Kidney Disease: No - ENDOCRINE/METABOLIC Hx Diabetes Mellitus Type 1: Yes - MUSCULOSKELETAL/RHEUMATOLOGICAL Hx Falls: Yes - GASTROINTESTINAL Hx Gastroesophageal Reflux: Yes - GENITOURINARY/GYNECOLOGICAL Hx Genitourinary Disorders: No - PSYCHIATRIC Hx Psychophysiologic Disorder: No Hx Substance Use: No - SURGICAL HISTORY Hx Eye Surgery: Yes (Both) Other/Comment: HX DVY with IVC filter. 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 1994 - ANESTHESIA Hx Anesthesia: Yes Hx Anesthesia Reactions: No Hx Malignant Hyperthermia: No Meds Home Medications: Home Medication List Medication Instructions Recorded Confirmed Type Apixaban [Eliquis] 2.5 mg PO BID #60 tab 01/03/19 Rx Aspirin [Aspirin Chewable] 81 mg PO DAILY #30 chew 01/03/19 Rx Atorvastatin [Lipitor] 10 mg PO DAILY #30 tab 01/03/19 Rx Carvedilol [Coreg] 25 mg PO BID #60 tab 01/03/19 Rx Docusate [Colace] 100 mg PO BID #60 cap 01/03/19 Rx Fenofibrate [Tricor] 48 mg PO DAILY #30 tab 01/03/19 Rx Ferrous Sulfate [Feosol] 325 mg PO BID #60 tab 01/03/19 Rx Furosemide [Lasix] 40 mg PO DAILY #30 tab 01/03/19 Rx Losartan [Cozaar] 50 mg PO DAILY 30 Days tab 01/03/19 Rx Omeprazole 40 mg PO DAILY #30 capsule. 01/03/19 Rx Phenytoin Sodium Extended 100 mg PO TID #90 capsule 01/03/19 Rx Tamsulosin HCl 0.4 mg PO DAILY #30 capsule 01/03/19 Rx Allergies/Adverse Reactions: Allergies Allergy/AdvReac Type Severity Reaction Status Date / Time No Known Allergies Allergy Verified 12/31/18 18:17 - Medications Medications: Current Medications Acetaminophen (Tylenol 325mg Tab) 650 mg PO Q6 PRN PRN Reason: Fever >100.4 F Apixaban (Eliquis) 2.5 mg PO BID [facility]; Protocol Last Admin: 01/04/19 08:49 Dose: 2.5 mg Aspirin (Aspirin Chewable) 81 mg PO DAILY [facility] Last Admin: 01/04/19 08:48 Dose: 81 mg Atorvastatin Calcium (Lipitor) 10 mg PO DAILY [facility] Last Admin: 01/04/19 08:50 Dose: 10 mg Carvedilol (Coreg) 25 mg PO BID [facility] Last Admin: 01/04/19 08:48 Dose: 25 mg Docusate Sodium (Colace) 100 mg PO DAILY [facility] Last Admin: 01/04/19 08:48 Dose: 100 mg Famotidine (Pepcid) 40 mg PO DAILY [facility] Last Admin: 01/04/19 08:51 Dose: 40 mg Fenofibrate (Tricor) 48 mg PO DAILY [facility] Last Admin: 01/04/19 08:52 Dose: 48 mg Finasteride (Proscar) 5 mg PO DAILY [facility] Last Admin: 01/04/19 08:51 Dose: 5 mg Furosemide (Lasix) 40 mg IVP DAILY [facility] Last Admin: 01/04/19 08:50 Dose: 40 mg Iron Sucrose 100 mg/ Sodium (Chloride) 105 mls @ 105 mls/hr IVPB DAILY [facility] Last Admin: 01/04/19 08:53 Dose: 105 mls/hr Losartan Potassium (Cozaar) 50 mg PO DAILY [facility] Last Admin: 01/04/19 08:49 Dose: 50 mg Meclizine HCl (Antivert) 25 mg PO TID [facility] Last Admin: 01/01/19 17:18 Dose: 25 mg Phenytoin Sodium (Dilantin) 100 mg PO TID [facility] Last Admin: 01/04/19 08:50 Dose: 100 mg Polyethylene Glycol (Miralax) 17 gm PO DAILY PRN PRN Reason: Constipation Results - Vital Signs Recent Vital Signs: Last Vital Signs Temp 98.2 F 01/04/19 08:31 Pulse 62 01/04/19 08:49 Resp 20 01/04/19 08:31 BP 118/64 01/04/19 08:50 Pulse Ox 100 01/04/19 08:31 - Labs Result Diagrams: 01/04/19 04:40 01/04/19 04:40 Labs: Laboratory Results - last 24 hr 01/04/19 01/04/19 04:40 04:40 WBC 6.3 RBC 3.32 L Hgb 8.0 L Hct 24.5 L MCV 73.9 L MCH 24.2 L MCHC 32.8 L RDW 16.7 H Plt Count 130 Sodium 137 Potassium 4.4 Chloride 98 Carbon Dioxide 28 Anion Gap 15 BUN 54 H Creatinine 1.7 H Est GFR ( Amer) 46 Est GFR (Non-Af Amer) 38 Random Glucose 89 Calcium 8.9
--- NOTE | 2019-01-04 10:18 | CP.PCM.DIS ---
Provider - Provider Date of Admission: 12/31/18 20:35 Attending physician: Chet Pritchard Consults: 01/03/19 18:18 Cardiology Consult Routine Comment: Consulting Provider: Gurdeep Grimes V Consulting Physician: Gurdeep Grimes V Reason for Consult: suspected pacemaker failure ? Time Spent in preparation of Discharge (in minutes): 30 Diagnosis - Discharge Diagnosis (1) CHF exacerbation Status: Acute Comment: -likely acute on chronic. -Echo 05/2018, EF 60-65. -CXR change in cardiac siloutte noted from last CXR. -elevated pro-bnp (2200). - lasix daily 40mg. -echo: EF: 55-60 % and moderate pulmonary HTN Hospital Course - Lab Results Lab Results: Most Recent Lab Values WBC 6.3 K/uL (4.8-10.8) 01/04/19 04:40 RBC 3.32 Mil/uL (4.40-5.90) L 01/04/19 04:40 Hgb 8.0 g/dL (12.0-18.0) L 01/04/19 04:40 Hct 24.5 % (35.0-51.0) L 01/04/19 04:40 MCV 73.9 fl (80.0-94.0) L 01/04/19 04:40 MCH 24.2 pg (27.0-31.0) L 01/04/19 04:40 MCHC 32.8 g/dL (33.0-37.0) L 01/04/19 04:40 RDW 16.7 % (11.5-14.5) H 01/04/19 04:40 Plt Count 130 K/uL (130-400) 01/04/19 04:40 MPV 11.5 fl (7.2-11.7) 01/01/19 04:30 Neut % (Auto) 59.3 % (50.0-75.0) 01/01/19 04:30 Lymph % (Auto) 19.5 % (20.0-40.0) L 01/01/19 04:30 Cloud % (Auto) 17.3 % (0.0-10.0) H 01/01/19 04:30 Eos % (Auto) 2.6 % (0.0-4.0) 01/01/19 04:30 Baso % (Auto) 1.3 % (0.0-2.0) 01/01/19 04:30 Neut # (Auto) 2.9 K/uL (1.8-7.0) 01/01/19 04:30 Lymph # (Auto) 1.0 K/uL (1.0-4.3) 01/01/19 04:30 Cloud # (Auto) 0.8 K/uL (0.0-0.8) 01/01/19 04:30 Eos # (Auto) 0.1 K/uL (0.0-0.7) 01/01/19 04:30 Baso # (Auto) 0.1 K/uL (0.0-0.2) 01/01/19 04:30 PT 20.2 Seconds (9.8-13.1) H 01/01/19 04:30 INR 1.8 01/01/19 04:30 APTT 33.9 Seconds (25.6-37.1) 01/01/19 04:30 Sodium 137 mmol/l (132-148) 01/04/19 04:40 Potassium 4.4 MMOL/L (3.6-5.0) 01/04/19 04:40 Chloride 98 mmol/L (98-107) 01/04/19 04:40 Carbon Dioxide 28 mmol/L (22-30) 01/04/19 04:40 Anion Gap 15 (10-20) 01/04/19 04:40 BUN 54 mg/dl (9-20) H 01/04/19 04:40 Creatinine 1.7 mg/dl (0.8-1.5) H 01/04/19 04:40 Est GFR ( Amer) 46 01/04/19 04:40 Est GFR (Non-Af Amer) 38 01/04/19 04:40 POC Glucose (mg/dL) 129 mg/dL (65-110) H 01/01/19 21:12 Random Glucose 89 mg/dL (75-110) 01/04/19 04:40 Calcium 8.9 mg/dL (8.4-10.2) 01/04/19 04:40 Phosphorus 4.1 mg/dl (2.5-4.5) 01/01/19 04:30 Magnesium 1.3 MG/DL (1.6-2.3) L 01/01/19 04:30 Iron 28 ug/dL (49-181) L 01/01/19 04:30 TIBC 406 ug/dL (250-450) 01/01/19 04:30 % Saturation 7 % (20-55) L 01/01/19 04:30 Ferritin 12.1 ng/Ml (17.9-464) L 01/01/19 04:30 Total Bilirubin 0.6 mg/dl (0.2-1.3) 12/31/18 19:50 AST 23 U/L (17-59) 12/31/18 19:50 ALT 22 U/L (21-72) 12/31/18 19:50 Alkaline Phosphatase 79 U/L (38-126) 12/31/18 19:50 Troponin I 0.0260 ng/mL (0.00-0.120) 01/01/19 10:35 NT-Pro-B Natriuret Pep 2200 pg/ml (0-900) H 12/31/18 20:20 Total Protein 7.6 G/DL (6.3-8.2) 12/31/18 19:50 Albumin 4.5 g/dL (3.5-5.0) 12/31/18 19:50 Globulin 3.1 gm/dL (2.2-3.9) 12/31/18 19:50 Albumin/Globulin Ratio 1.5 (1.0-2.1) 12/31/18 19:50 Triglycerides 52 mg/DL (0-149) 01/02/19 05:16 Cholesterol 74 mg/dL (0-199) 01/02/19 05:16 LDL Cholesterol Direct 33 mg/dL (0-129) 01/02/19 05:16 HDL Cholesterol 34 MG/DL (30-70) 01/02/19 05:16 Phenytoin 4.8 ug/ML (10-20) L 01/02/19 05:16 Hepatitis A IgM Ab Negative (NEGATIVE) 01/02/19 05:16 Hep Bs Antigen Negative (NEGATIVE) 01/02/19 05:16 Hep B Core IgM Ab Negative (NEGATIVE) 01/02/19 05:16 Hepatitis C Antibody Negative (NEGATIVE) 01/02/19 05:16 - Hospital Course Hospital Course: 88 yo Male with history of NIDDM2, Pacemaker, HTN, Afib, seizures is admitted for CHF exacerbation. Elevated ProBNP 2200, Echo performed 01/01/19: EF 55-60% and moderate pulmonary HTN. Patient was admitted to telemetry. During hospital stay, was hemodynamically stable and noted to have swelling of bilateral lower extremities. Patient was started on Lasix 40mg IVP daily. Lower extremity swelling resolved. Concern was that pacemaker was had loss of capture. Cardiology was consulted at that time and found pacemaker was checked in shipping lead's office October 21, 2018 and demonstrated good function. Repeat EKG's demonstrated appropriate capture. Patient is not interested in [facility] and wants to be discharged home. Has clinically improved. Discharge Exam - Head Exam Head Exam: ATRAUMATIC, NORMOCEPHALIC - Eye Exam Eye Exam: Normal appearance - ENT Exam ENT Exam: Mucous Membranes Moist - Respiratory Exam Respiratory Exam: Clear to PA & Lateral, NORMAL BREATHING PATTERN, UNREMARKABLE. absent: Accessory Muscle Use, Chest Wall Tenderness, Decreased Breath Sounds, Prolonged Expiratory Phase, Rales, Rhonchi, Wheezes, Respiratory Distress, Stridor - Cardiovascular Exam Cardiovascular Exam: REGULAR RHYTHM, +S1, +S2 - GI/Abdominal Exam GI & Abdominal Exam: Normal Bowel Sounds, Soft, Unremarkable. absent: Distended, Firm, Rebound, Rigid, Tenderness - Neurological Exam Neurological exam: Alert, Oriented x3 - Psychiatric Exam Psychiatric exam: Normal Affect, Normal Mood - Skin Skin Exam: Dry, Intact, Normal Color, Warm Discharge Plan - Discharge Medications Prescriptions: RX: Apixaban [Eliquis] 2.5 mg PO BID #60 tab RX: Aspirin [Aspirin Chewable] 81 mg PO DAILY #30 chew RX: Atorvastatin [Lipitor] 10 mg PO DAILY #30 tab RX: Carvedilol [Coreg] 25 mg PO BID #60 tab Docusate [Colace] 100 mg PO BID #60 cap RX: Fenofibrate [Tricor] 48 mg PO DAILY #30 tab RX: Ferrous Sulfate [Feosol] 325 mg PO BID #60 tab RX: Furosemide [Lasix] 40 mg PO DAILY #30 tab RX: Losartan [Cozaar] 50 mg PO DAILY 30 Days tab RX: Omeprazole 40 mg PO DAILY #30 capsule. RX: Phenytoin Sodium Extended 100 mg PO TID #90 capsule RX: Tamsulosin HCl 0.4 mg PO DAILY #30 capsule - Follow Up Plan Condition: STABLE Disposition: HOME/ ROUTINE Patient education suggested?: Yes Instructions: Heart Failure, Adult (DC), Chest Pain (DC) Additional Instructions: piero Cerna 01/06/19 10:00am [facility] visiting nurse [phone] Referrals: Mau Elise MD [Family Provider] - Chris Nuno MD [Staff Provider] -
--- NOTE | 2019-01-04 11:49 | CARD ---
APPROVED REPORT Date of service: 01/04/2019 EKG Measurement Heart [id number] <Conclusion> Ventricular-paced rhythm Abnormal ECG
[2019-01-04 12:39] VITALS: BP 115/68; PULSE 61; TEMP 97.3
== END 2019-01-04 14:23 | disposition home or self-care (01) | DRG 291 ==
LOC: H.ER 18:09 → H.ERHOLD 20:35 → H.TEL 01-01 00:45
PROVIDERS: ADMIT Internal Medicine; ATTEND Internal Medicine
DX: I13.0 Hypertensive heart and chronic kidney disease with heart failure and stage 1 through stage 4 chronic kidney disease, or unspecified chronic kidney disease (principal); I50.43 Acute on chronic combined systolic (congestive) and diastolic (congestive) heart failure; N17.9 Acute kidney failure, unspecified; R18.8 Other ascites; I48.92 Unspecified atrial flutter; E87.5 Hyperkalemia; D69.6 Thrombocytopenia, unspecified; D50.9 Iron deficiency anemia, unspecified; I48.0 Paroxysmal atrial fibrillation; E11.21 Type 2 diabetes mellitus with diabetic nephropathy; E11.319 Type 2 diabetes mellitus with unspecified diabetic retinopathy without macular edema; K74.60 Unspecified cirrhosis of liver; I48.2 Chronic atrial fibrillation; G40.909 Epilepsy, unspecified, not intractable, without status epilepticus; D63.8 Anemia in other chronic diseases classified elsewhere; E11.22 Type 2 diabetes mellitus with diabetic chronic kidney disease; N18.3 Chronic kidney disease, stage 3 (moderate); E78.00 Pure hypercholesterolemia, unspecified; E78.5 Hyperlipidemia, unspecified; I27.20 Pulmonary hypertension, unspecified; I44.1 Atrioventricular block, second degree; I87.2 Venous insufficiency (chronic) (peripheral); N40.0 Benign prostatic hyperplasia without lower urinary tract symptoms; Z95.0 Presence of cardiac pacemaker; R26.9 Unspecified abnormalities of gait and mobility; I08.1 Rheumatic disorders of both mitral and tricuspid valves